=== PATIENT | female | born 1935 | race Caucasian/White ===

== ENCOUNTER 2016-04-04 08:44 | Emergency (ER) | payer OTHER, MEDICARE ==
--- NOTE | 2016-04-04 10:20 | DIAGNOSTIC IMAGING REPORT ---
PROCEDURE: XR CHEST 1 VIEW INDICATION: SHORTNESS OF BREATH TECHNIQUE: Portable AP view 09:42 a.m. COMPARISON: Chest 12/27/2015 and 07/08/2009 FINDINGS: Lungs are clear. There is moderate cardiomegaly. There is a left subclavian pacemaker. Thorax is normal. IMPRESSION: 1. No acute infiltrates. Cardiomegaly
--- NOTE | 2016-04-04 12:48 | ED NURSING NOTES ---
Clinical Report - Nurses [facility] [address] [place] [address] 04/04/2016 8:44 Patient: PRABHJOT AYALA TRIAGE Acuity: LEVEL 3. Chief Complaint: WEAKNESS. Alert. No acute distress. SEPSIS SCREEN: Sepsis Screen. Negative (no infection suspected/documented). KARI COMA SCORE: [place] Coma Scale: 15- eyes open spontaneously (4); best verbal response- oriented x 4 (5); best motor response- obeys commands (6). --08:53 Sherrill Diaz R.N. 08:46 04/04/16. BP: 154/67. HR: 88. RR: 20. O2 saturation: 94%. Temp: 99.4 F. Pain level now: 0/10. --08:53 Sherrill Diaz R.N. Weight: 80.7 kg stated. Height/Length: 60 inches Per Patient. BMI: 34.7. --08:51 Sherrill Diaz R.N. Medications Diltiazem HCl Oral 180 mg, daily. Estraderm Transdermal 0.05, patch weekly. HydrALAZINE HCl Oral (Tablet 10 mg) 1 tablet, TID. Omeprazole Oral 40 mg, 2x a day. Synthroid Oral 50 mcg, daily. Warfarin Sodium Oral 3 mg, MWF (2.5 T TH SS). Wellbutrin Oral 150 mg, daily. Xanax Oral 0.5 mg, at bedtime. --08:50 Sherrill Diaz R.N. Valtrex Oral (Tablet 1 gm). --08:52 Sherrill Diaz R.N. Medication/allergy information source: the patient. --08:53 Sherrill Diaz R.N. Allergies Ambien. (passed out) Amiodarone. (toxicity of lungs) Bactrim. Ceftin. Cozaar. Levofloxacin. Lexapro. (sores in mouth) LIsinopril. Nitrous oxide-- couldn't breath. --08:49 Sherrill Diaz R.N. History Arrived by EMS. Historian: patient. Unaccompanied. Primary physician (Usha). Onset. (5 days ago). Treatment VIDEO PRODUCTION SPECIALIST: None. PAST MEDICAL HX: The patient has had a hysterectomy. SOCIAL HX: Never smoker. No alcohol use or drug use. NUTRITIONAL RISK ASSESSMENT: The nutritional risk assessment revealed no deficiencies. FUNCTIONAL ASSESSMENT: Functional assessment: no impairments noted. LEARNING NEEDS ASSESSMENT: The learning needs assessment revealed no barriers. FALL RISK ASSESSMENT: Fall risk assessment completed. Risk factors identified include patient age greater than 65 years, history of fall and impairment of mobility. Fall interventions initiated. Patient placed on stretcher. Side rails up x2. Brakes on Bed in low position. Call light in reach. SKIN INTEGRITY ASSESSMENT: Skin integrity risk assessment completed. No skin integrity risk identified. --08:53 Sherrill Diaz R.N. PROBLEMS: Hypertension. Dyspnea. Weakness. Pneumonia. Pulmonary fibrosis. Congestive Heart Failure. --08:51 Sherrill Diaz R.N. ADDITIONAL SURGERIES: Ablation. Cholecystectomy. Hysterectomy. Pacer. --08:51 Sherrill Diaz R.N. Assessment GENERAL / NEURO / PSYCH: Alert. Oriented X 4. Appears in no acute distress. Patient appears calm and cooperative. RESPIRATORY: Respirations not labored. CVS: Capillary refill less than 2 seconds. GI / : Abdomen soft and nontender. SKIN: Mucous membranes are pink. Skin is warm and dry. --08:53 Sherrill Diaz R.N. Interventions ID band on patient. To treatment room. --08:53 Sherrill Diaz R.N. PHYSICAL ASSESSMENT To room via stretcher. GENERAL / NEURO / PSYCH: Alert. Oriented X 4. Appears in no acute distress. HEENT: No facial asymmetry noted. Mucous membranes are pink. RESPIRATORY: Respirations not labored. CVS: Capillary refill less than 2 seconds. GI / : Abdomen soft and nontender. SKIN: Skin intact. Skin is warm and dry. Normal skin turgor. --08:54 Sherrill Diaz R.N. NURSING PROGRESS NOTES 08:54 04/04/16. Patient gowned. Two patient identifiers checked. Call light placed in reach. Side rails up x 2. Bed placed in lowest position. Brakes of bed on. Patient ready for evaluation- chart flagged and ED physician notified. --08:54 Sherrill Diaz R.N. 09:36 04/04/2016 Site #1 started via IV in the left antecubital space with an 20g angiocath, with aseptic technique and good blood return; one attempt. Blood drawn: rainbow set. Labeled in the presence of the patient and sent to the lab. --09:36 Sherrill Diaz R.N. 09:36 04/04/2016 Started bag #1 1000 mL IV Fluids IV NS (Saline); at 999 mL/hr over 1 hour(s) via site #1 via IV pump. Allergies verified and confirmed 5 rights. IV patency established. IV site checked: no pain, redness, or swelling. IV flushed thoroughly pre- and post-medication administration. --09:36 Sherrill Diaz R.N. 09:45 04/04/16. EKG was performed by a nurse and shown to the ED physician. --09:45 Sherrill Diaz R.N. 10:38 04/04/2016 IV Fluids IV NS Discontinued: bag #1 infused. Total amount infused: 1000 mL. IV patency established. IV site checked: no pain, redness, or swelling. IV flushed thoroughly. --10:38 Sherrill Diaz R.N. 11:05 04/04/16. Assisted patient to bathroom, to wheelchair and back to bed; tolerated well. Patient ID band checked for patient name and birthdate: patient confirmed. Instructions provided to collect clean catch urine and patient verbalized understanding. Clean catch urine collected with return of roberto-colored cloudy urine; sample sent to lab for urinalysis and culture. Specimen labeled in the presence of the patient. --11:05 Yuval Wynne R.N. 11:51 04/04/2016 Macrobid PO 100 mg given. Allergies verified and confirmed 5 rights. --11:52 Sherrill Diaz R.N. 11:52 04/04/16. BP: 140/63. HR: 73. RR: 18. O2 saturation: 96%. Temp: 99 F (oral). --11:53 Sherrill Diaz R.N. 10:25 04/04/2016 Site #1 removed upon discharge. Catheter intact. Manual pressure and bandage applied. --13:01 Sherrill Diaz R.N. DISPOSITION / DISCHARGE 13:02 04/04/16. Departure time: 1256. Condition at departure: improved and stable. No learning barriers present. Discharge instructions provided and reviewed with the caregiver, patient and family. Reviewed medication(s) side effects, precautions, dosing and course information. Prescription(s) given to the patient. Patient and family verbalized understanding. Written instructions provided in [place]. Caregiver verbalized understanding. The patient was discharged by the physician. She was discharged home and accompanied by family. She left the Emergency Department in a wheelchair and via private vehicle. Family member driving. --13:02 Yuval Wynne R.N. 13:00 04/04/16. BP: 144/64. HR: 72. RR: 16. O2 saturation: 99% on room air. Temp: 98.2 F (oral). Pain level now 0/10. --13:02 Yuval Wynne R.N. Locked/Released at 04/04/2016 13:03 by Yuval Wynne R.N.
--- NOTE | 2016-04-04 12:48 | ED ORDER SUMMARY ---
..... Patient: PRABHJOT AYALA OrderSheet [facility] VisitID: [id number] [place] [address] 80y, F Registration Date/Time: 04/04/2016 ORDER SHEET Weight: 80.7 kg (stated) Allergies: Ambien, Amiodarone, Bactrim, Ceftin, Cozaar, Levofloxacin, Lexapro, LIsinopril, Nitrous oxide-- couldn't breath GENERAL ORDERS: Chest 1V Urgent (09:04/04/2016 Frank BERNAL) (Ack 9:23 LMuller) (9:44 MWinterer R.N.) Supervisor Liquefaction (Continuous) (:04/04/2016 Frank BERNAL) (Ack 9:23 LMuller) (9:36 MWinterer R.N.) Cardiac Panel Stat (:04/04/2016 Frank BERNAL) (Ack 9:23 LMuller) (9:37 MWinterer R.N.) UA-Culture if indicated Urgent (:04/04/2016 Frank BERNAL) (Ack 9:23 LMuller) (11:45 MWinterer R.N.) BNP Urgent (:04/04/2016 Frank BERNAL) (Ack 9:23 LMuller) (9:37 MWinterer R.N.) Pulse oximeter (:04/04/2016 Frank BERNAL) (Ack 9:23 LMuller) (9:36 MWinterer R.N.) EKG - ER Stat (:04/04/2016 Frank BERNAL) (Ack 9:23 LMuller) (9:44 MWinterer R.N.) MEDICATION ORDERS: Macrobid PO 100 mg (NOW) (11:04/04/2016 Frank BERNAL) (Ack 11:43 MWinterer R.N.) (11:51 MWinterer R.N.) IV FLUIDS: IV NS : initial bolus 1000 mL (1000 mL/hr), then none - (NOW) (09:04/04/2016 Frank BERNAL) (Ack 9:23 MWinterer R.N.) (9:36 MWinterer R.N.) ORDER SHEET NOTES: [Electronically signed by Yuval Wynne R.N. (13:03 04/04/2016)] [Electronically signed by Rahel Parisi MD (07:38 04/10/2016)] [Electronically locked/signed by Yuval Wynne R.N. (13:03 04/04/2016)]
--- NOTE | 2016-04-04 12:48 | ED ORDER SUMMARY ---
..... Patient: PRABHJOT AYALA OrderSheet [facility] VisitID: [id number] [place] [address] 80y, F Registration Date/Time: 04/04/2016 ORDER SHEET Weight: 80.7 kg (stated) Allergies: Ambien, Amiodarone, Bactrim, Ceftin, Cozaar, Levofloxacin, Lexapro, LIsinopril, Nitrous oxide-- couldn't breath GENERAL ORDERS: Chest 1V Urgent (09:04/04/2016 Frank BERNAL) (Ack 9:23 LMuller) (9:44 MWinterer R.N.) Government Affairs Specialist (Continuous) (:04/04/2016 Frank BERNAL) (Ack 9:23 LMuller) (9:36 MWinterer R.N.) Cardiac Panel Stat (:04/04/2016 Frank BERNAL) (Ack 9:23 LMuller) (9:37 MWinterer R.N.) UA-Culture if indicated Urgent (:04/04/2016 Frank BERNAL) (Ack 9:23 LMuller) (11:45 MWinterer R.N.) BNP Urgent (:04/04/2016 Frank BERNAL) (Ack 9:23 LMuller) (9:37 MWinterer R.N.) Pulse oximeter (:04/04/2016 Frank BERNAL) (Ack 9:23 LMuller) (9:36 MWinterer R.N.) EKG - ER Stat (:04/04/2016 Frank BERNAL) (Ack 9:23 LMuller) (9:44 MWinterer R.N.) MEDICATION ORDERS: Macrobid PO 100 mg (NOW) (11:04/04/2016 Frank BERNAL) (Ack 11:43 MWinterer R.N.) (11:51 MWinterer R.N.) IV FLUIDS: IV NS : initial bolus 1000 mL (1000 mL/hr), then none - (NOW) (09:04/04/2016 Frank BERNAL) (Ack 9:23 MWinterer R.N.) (9:36 MWinterer R.N.) ORDER SHEET NOTES: [Electronically signed by Yuval Wynne R.N. (13:03 04/04/2016)] [Electronically signed by Rahel Parisi MD (07:38 04/10/2016)] [Electronically locked/signed by Yuval Wynne R.N. (13:03 04/04/2016)]
--- NOTE | 2016-04-04 12:48 | ED CLINICAL REPORT ---
Clinical Report - Physicians/Mid Levels [facility] [address] [place] [address] 04/04/2016 8:44 Patient: PRABHJOT AYALA Time Seen: 09:18. Arrived- By private vehicle. Historian- patient. HISTORY OF PRESENT ILLNESS Chief Complaint: WEAKNESS. Not described as a sense of rotation, movement, falling or confusion. Not described as feeling off balance, light-headed or faint. Described as feeling weak all over. This started about 3 days ago and is still present. Severity described as mild at its maximum. When seen in the E.D., severity described as mild. Modifying factors- relieved by nothing. Not worsened by anything. No nausea, vomiting, hearing loss or tinnitus. (PT states she's been in bed more than usual lately. She also notes that she has not been drinking much water.). Similar symptoms previously: Recent medical care: Not recently seen/assessed. REVIEW OF SYSTEMS No headache, double vision, fainting episodes, head injury or chest pain. No palpitations, black stools, numbness, bloody stools or fever. No sore throat, cough, difficulty breathing, abdominal pain or diarrhea. No difficulty with urination, skin rash, enlarged lymph nodes, chills or joint pain. The patient has had generalized weakness. No difficulty walking. All systems otherwise negative, except as recorded above. PAST HISTORY Problems: Hypertension. Pulmonary fibrosis. Congestive Heart Failure. Additional Surgeries: Ablation. Cholecystectomy. Hysterectomy. Pacer. Medications: Valtrex Oral (Tablet 1 gm). Diltiazem HCl Oral 180 mg, daily. Estraderm Transdermal 0.05, patch weekly. HydrALAZINE HCl Oral (Tablet 10 mg) 1 tablet, TID. Omeprazole Oral 40 mg, 2x a day. Synthroid Oral 50 mcg, daily. Warfarin Sodium Oral 3 mg, MWF (2.5 T SS). Wellbutrin Oral 150 mg, daily. Xanax Oral 0.5 mg, at bedtime. Allergies: Ambien. (passed out) Amiodarone. (toxicity of lungs) Bactrim. Ceftin. Cozaar. Levofloxacin. Lexapro. (sores in mouth) LIsinopril. Nitrous oxide-- couldn't breath. SOCIAL HISTORY Never smoker. No alcohol use or drug use. ADDITIONAL NOTES The nursing notes have been reviewed. PHYSICAL EXAM Vital Signs: 04/04/2016 08:46 BP: 154/67. HR: 88. RR: 20. O2 saturation: 94%. Temp: 99.4 F. Pain level now: 0/10. Have been reviewed. Appearance: Alert. No acute distress. Eyes: Pupils equal, round and reactive to light. No nystagmus. Extraocular movements normal. ENT: Normal ENT inspection. Moist mucous membranes. Neck: Normal inspection. CVS: Normal heart rate and rhythm. Heart sounds normal. Pulses normal. Respiratory: No respiratory distress. Breath sounds normal. Abdomen: Soft and nontender. Back: Normal inspection. No CVA tenderness. Skin: Skin warm and dry. Normal skin color. No rash. Normal skin turgor. Extremities: Extremities exhibit normal ROM. No lower extremity edema. Neuro: Alert. Oriented X 3. Mood/affect normal. Speech normal. Cranial nerves normal (as tested). No cerebellar findings. No motor deficit. No sensory deficit. LABS, X-RAYS, AND EKG EKG: EKG time: (45). No acute ischemia. Rate: 70. Paced rhythm. Abnormal P waves. Wide QRS. Normal QT and QTc. Non-specific ST segment / T wave abnormalities. Prior EKG unavailable. The study has been interpreted contemporaneously by me. The study has been independently viewed by me. The EKG appears to be a good tracing. I agree with and confirm the computer reading of the EKG. Rhythm Strip #1: Time: (32). Rate= 70. Regular rhythm. Paced rhythm. No ectopy. Conduction normal. Normal ST segments and T waves. The study was interpreted by me. Chest X-ray: No acute disease. Normal lung markings present. Normal heart size. Mediastinum normal. Great vessels normal. Soft tissues normal. No infiltrate. No fracture. No bony lesion present. Views: AP (portable). Technique: good. The X-rays were independently viewed by me, interpreted by the radiologist and contemporaneously by me and discussed with the radiologist. Prior films were not available for comparison. Laboratory Tests: UA-Culture if indicated: (HUMERA: 04/04/2016 10:59) ( [facility] Final results Test Result Flag Units (Reference) URINE COLOR YELLOW URINE APPEARANCE CLOUDY URINE GLUCOSE NEGATIVE (NEGATIVE) URINE BILIRUBIN NEGATIVE (NEGATIVE) URINE KETONE NEGATIVE (NEGATIVE) URINE SPECIFIC GRAVITY 1.010 (1.010-1.030) URINE PH 6.0 (5.0-8.0) URINE PROTEIN 1+ (NEGATIVE) URINE UROBILINOGEN 0.2 EU/dL (0.2-1.0) URINE NITRITE POSITIVE (NEGATIVE) URINE BLOOD 2+ (NEGATIVE) URINE LEUK ESTERASE POSITIVE (NEGATIVE) URINE RBC 1-3 rbc/hpf (0-1) URINE WBC >100 wbc/hpf (0-1) URINE EPITHELIAL CELLS 3-5 EPI/hpf (0-5) URINE BACTERIA MANY (4+) (NONE SEEN) URINE COMMENT CULTURE INDICATED 1+ MUCOUSURINE CULTURES ARE SET-UP BASED ON THE FOLLOWING CRITERIA:POSITIVE NITRITEPOSITIVE LEUKOCYTE ESTERASEGREATER THAN 10 WHITE BLOOD CELLSMODERATE (2+) OR GREATER BACTERIA CBC w Diff: (HUMERA: 04/04/2016 09:30) ( [facility] [place] [facility] 09[facility]43) Final results Test Result Flag Units (Reference) WHITE BLOOD COUNT 12.1 H K/uL (4.5-11.5) RED BLOOD COUNT 3.85 L M/uL (4.00-5.20) HEMOGLOBIN 12.1 gm/dL (12.0-16.0) HEMATOCRIT 36.2 % (36.0-46.0) MEAN CELL VOLUME 94 fL (80-100) MEAN CORPUSCULAR HGB 32 pg (26-34) MEAN CORPUSCULAR HGB CONC 34 g/dL (31-37) RED CELL DISTRIBUTION WIDTH 15.3 H % (11.6-14.8) PLATELET COUNT 231 K/uL (150-400) NEUTROPHIL % 84.3 H % (50-75) LYMPH % 8.4 L % (25-40) MONO % 7.1 % (3-14) EOSINOPHIL % 0.1 % (0-4) BASOPHIL % 0.1 % (0-2) BNP: (HUMERA: 04/04/2016 09:30) ( MsgRcvd 04/04/2016 10:10) Final results Test Result Flag Units (Reference) B-TYPE NATRIURETIC PEPTIDE 524 H pg/ml (5-100) CHEM 13 PANEL: (HUMERA: 04/04/2016 09:30) ( MsgRcvd 04/04/2016 10:14) Final results Test Result Flag Units (Reference) GLUCOSE 112 H mg/dL (70-110) BUN 18 mg/dL (7-18) CREATININE 1.6 H mg/dL (0.6-1.3) Estimated GFR 32.88 mL/min Estimated GFR- 39.85 mL/min Note: Persistent reduction over 3 months in eGFR<60 mL/min/1.73 m2 defines CKD. Patients with eGFR values>=60 mL/min/1.73 m2 may also have CKD if evidence ofpersistent proteinuria. Additional information may be foundat www.kidney.org. SODIUM 139 mmol/L (136-145) POTASSIUM 3.5 mmol/L (3.5-5.1) CHLORIDE 103 mmol/L (98-107) CARBON DIOXIDE 23 mmol/L (21-32) CALCIUM 8.5 mg/dL (8.5-10.1) TOTAL PROTEIN 7.0 g/dL (6.4-8.2) ALBUMIN 2.7 L g/dL (3.3-5.0) BILIRUBIN, TOTAL 1.5 H mg/dL (0.0-1.0) ALKALINE PHOSPHATASE 97 U/L (46-116) AST (SGOT) 34 U/L (15-37) ALT (SGPT) 35 U/L (12-78) MAGNESIUM 1.8 mg/dL (1.8-2.4) CPK 90 U/L (24-260) TROPONIN I <0.05 ng/mL (0.00-1.5) TROPONIN REFERENCE RANGE:<0.1 NEGATIVE0.1-1.5 INDETERMINANT>1.5 POSITIVE . Pulse Oximetry: 04/04/2016 08:46 O2 saturation: 94%. (FIO2 - room air). Interpretation: normal. PROGRESS AND PROCEDURES Course of Care: PT was worked up for her weakness. She was given a liter of NS, after which she stated she felt better. Pt was found to have a UTI, and was started on Macrobid for this. No emergent condition identified. Patient and family counseled in person regarding the patient's stable condition, test results, diagnosis and need for follow-up. Concerns were addressed. Old medical records reviewed. Disposition: Discharged. Condition: stable and improved. CLINICAL IMPRESSION Moderate dehydration Acute urinary tract infection with cystitis. INSTRUCTIONS Drink plenty of fluids. Warnings: GENERAL WARNINGS: Return or contact your physician immediately if your condition worsens or changes unexpectedly, if not improving as expected, or if other problems arise. Your Current Medications: CONTINUE TAKING THE FOLLOWING MEDICATIONS: Diltiazem HCl Oral : 180 mg daily. Estraderm Transdermal : 0.05 patch weekly. HydrALAZINE HCl Oral : Tablet 10 mg, 1 tablet TID. Omeprazole Oral : 40 mg 2x a day. Synthroid Oral : 50 mcg daily. Valtrex Oral : Tablet 1 gm. Warfarin Sodium Oral : 3 mg MWF, 2.5 T TH SS. Wellbutrin Oral : 150 mg daily. Xanax Oral : 0.5 mg at bedtime. Prescription Medications: Macrobid 100 mg: take 1 capsule orally every 12 hours for 10 days. No refill. Substitution is permissible. Follow-up: Follow up with your doctor in seven days if not better. Understanding of the discharge instructions verbalized by patient and family. Discharge instructions reviewed with and understanding was verbalized by caregiver. (Electronically signed by Rahel Parisi MD 04/10/2016 7:38)
--- NOTE | 2016-04-10 07:39 | ED MAR SUMMARY ---
..... Medication Administration Record [facility] [address] [place] [address] Patient: PRABHJOT AYALA Visit ID: [id number] 80y, F Weight: 80.7 kg Height/Length: 60 in BMI: 34.7 ALLERGIES: Ambien, Amiodarone, Bactrim, Ceftin, Cozaar, Levofloxacin, Lexapro, LIsinopril, Nitrous oxide-- couldn't breath Start 09:36 04/04/2016 Sherrill Diaz R.N., Stop 10:38 04/04/2016 Sherrill Diaz R.N. Medication Administered: IV NS (SALINE), Dose: IV Fluids over 1 hour(s), Rate: 999 mL/hr, Dispensed: 1000 mL bag, Site: #1 left AC. Medication Ordered: IV NS : initial bolus 1000 mL (1000 mL/hr), then none - (NOW). Given 11:51 04/04/2016 Sherrill Diaz R.N. Medication Administered: MACROBID [PO], Dose: 100 mg PO. Medication Ordered: Macrobid PO 100 mg (NOW).
--- NOTE | 2016-04-10 07:39 | ED MAR SUMMARY ---
..... Medication Administration Record [facility] [address] [place] [address] Patient: PRABHJOT AYALA Visit ID: [id number] 80y, F Weight: 80.7 kg Height/Length: 60 in BMI: 34.7 ALLERGIES: Ambien, Amiodarone, Bactrim, Ceftin, Cozaar, Levofloxacin, Lexapro, LIsinopril, Nitrous oxide-- couldn't breath Start 09:36 04/04/2016 Sherrill Diaz R.N., Stop 10:38 04/04/2016 Sherrill Diaz R.N. Medication Administered: IV NS (SALINE), Dose: IV Fluids over 1 hour(s), Rate: 999 mL/hr, Dispensed: 1000 mL bag, Site: #1 left AC. Medication Ordered: IV NS : initial bolus 1000 mL (1000 mL/hr), then none - (NOW). Given 11:51 04/04/2016 Sherrill Diaz R.N. Medication Administered: MACROBID [PO], Dose: 100 mg PO. Medication Ordered: Macrobid PO 100 mg (NOW).
--- NOTE | 2016-04-10 07:39 | ED MED RECONCILIATION SUMMARY ---
Patient: PRABHJOT AYALA Medication Reconciliation Report [facility] VisitID: [id number] [address] [place] [address] 80y, F Registration Date/Time: 04/04/2016 Weight: 80.7 kg Height/Length: 60 in. BMI: 34.7 ALLERGIES: Ambien, Amiodarone, Bactrim, Ceftin, Cozaar, Levofloxacin, Lexapro, LIsinopril, Nitrous oxide-- couldn't breath The patient's Home Medications are listed below: CONTINUE TAKING THE FOLLOWING MEDICATIONS: Diltiazem HCl Oral 180 mg, daily Estraderm Transdermal 0.05, patch weekly HydrALAZINE HCl Oral (10 mg) 1 tablet, TID Omeprazole Oral 40 mg, 2x a day Synthroid Oral 50 mcg, daily Valtrex Oral (1 gm) Warfarin Sodium Oral 3 mg, MWF, 2.5 T TH SS Wellbutrin Oral 150 mg, daily Xanax Oral 0.5 mg, at bedtime The source(s) of the original Home Medication information: patient The following Medications were given to the patient in the Emergency Department: IV NS IV Fluids bolus 0, then 999 mL/hr, administered: 04/04/2016 9:36:00 AM Macrobid [PO] PO 100 mg, administered: 04/04/2016 11:51:00 AM The following Medications were prescribed to the patient: Macrobid 100 mg: take 1 capsule orally every 12 hours for 10 days. No refill. Substitution is permissible. -- Rahel Parisi MD
--- NOTE | 2016-04-10 07:39 | ED MED RECONCILIATION SUMMARY ---
Patient: PRABHJOT AYALA Medication Reconciliation Report [facility] VisitID: [id number] [address] [place] [address] 80y, F Registration Date/Time: 04/04/2016 Weight: 80.7 kg Height/Length: 60 in. BMI: 34.7 ALLERGIES: Ambien, Amiodarone, Bactrim, Ceftin, Cozaar, Levofloxacin, Lexapro, LIsinopril, Nitrous oxide-- couldn't breath The patient's Home Medications are listed below: CONTINUE TAKING THE FOLLOWING MEDICATIONS: Diltiazem HCl Oral 180 mg, daily Estraderm Transdermal 0.05, patch weekly HydrALAZINE HCl Oral (10 mg) 1 tablet, TID Omeprazole Oral 40 mg, 2x a day Synthroid Oral 50 mcg, daily Valtrex Oral (1 gm) Warfarin Sodium Oral 3 mg, MWF, 2.5 T TH SS Wellbutrin Oral 150 mg, daily Xanax Oral 0.5 mg, at bedtime The source(s) of the original Home Medication information: patient The following Medications were given to the patient in the Emergency Department: IV NS IV Fluids bolus 0, then 999 mL/hr, administered: 04/04/2016 9:36:00 AM Macrobid [PO] PO 100 mg, administered: 04/04/2016 11:51:00 AM The following Medications were prescribed to the patient: Macrobid 100 mg: take 1 capsule orally every 12 hours for 10 days. No refill. Substitution is permissible. -- Rahel Parisi MD
--- NOTE | 2016-04-10 07:39 | ED DISCHARGE INSTRUCTIONS ---
Patient: PRABHJOT AYALA General Instructions [facility] VisitID: [id number] [place] [address] 80y, F Registration Date/Time: 04/04/2016 Moderate dehydration Acute urinary tract infection with cystitis. INSTRUCTIONS Drink plenty of fluids. Warnings: GENERAL WARNINGS: Return or contact your physician immediately if your condition worsens or changes unexpectedly, if not improving as expected, or if other problems arise. Your Current Medications: CONTINUE TAKING THE FOLLOWING MEDICATIONS: Diltiazem HCl Oral : 180 mg daily. Estraderm Transdermal : 0.05 patch weekly. HydrALAZINE HCl Oral : Tablet 10 mg, 1 tablet TID. Omeprazole Oral : 40 mg 2x a day. Synthroid Oral : 50 mcg daily. Valtrex Oral : Tablet 1 gm. Warfarin Sodium Oral : 3 mg MWF, 2.5 T TH SS. Wellbutrin Oral : 150 mg daily. Xanax Oral : 0.5 mg at bedtime. Prescription Medications: Macrobid 100 mg: take 1 capsule orally every 12 hours for 10 days. No refill. Substitution is permissible. Follow-up: Follow up with your doctor in seven days if not better. Understanding of the discharge instructions verbalized by patient and family. Discharge instructions reviewed with and understanding was verbalized by caregiver. ADDITIONAL INFORMATION Dehydration (Adult) Dehydration occurs when your body loses too much fluid. This may be the result of vomiting a lot or from diarrhea,sweating a lot, or a high fever. It may also happen if you dont drink enough fluid when youre sick. Misuse of diuretics (water pills) can also be a cause. Symptoms include thirst and feeling dizzy, weak, fatigued, or very drowsy. The diet described below is usually enough to treat most cases. Sometimes you may needmedicine. Home Care Follow these guidelines for home care: Drink at least 12 8-ounce glasses of fluid every day to overcome the dehydration. Fluid may include water; orange juice; lemonade; apple, grape, and cranberry juice; clear fruit drinks; electrolyte replacement and sports drinks; and teas and coffee without caffeine. If you have been diagnosed with a kidney disease, ask your doctor how much and what types of fluids you should drink to prevent dehydration. If you have kidney disease, drinking too much fluid can cause it build up in the your body and be dangerous to your health. If you have fever, muscle aching, or headache from a viral syndrome, you may useacetaminophen or ibuprofen, unless another medicine was prescribed for this.If you have chronic liver or kidney disease or ever had a stomach ulcer or GI bleeding, talk with your doctor before using these medicines. Don't take aspirin if you are younger than 18 and are ill with a fever.Aspirin raises the chance forsevere liver injury. Follow-up care Follow up with your health care provider if you don't get better in the next 24 to 48 hours. When to seek medical care Get prompt medical attention if any of theseoccur: Continued vomiting (cant keep liquids down) Frequent diarrhea (more than 5 times a day); blood (red or black color) or mucus in diarrhea Blood in vomit or stool Swollen abdomen or increasing abdominal pain Weakness, dizziness, or fainting Unusually drowsy or confused Reduced urine output or extreme thirst Fever of 100.4 F (38 C) oral or higher that does not get better with fever medication Bladder Infection,Female (Adult) A bladder infection ("cystitis" or "UTI") usually causes a constant urge to urinate and a burning when passing urine. Urine may be cloudy, smelly or dark. There may be pain in the lower abdomen. A bladder infection occurs when bacteria from the vaginal area enter the bladder opening (urethra). This can occur from sexual intercourse, wearing tight clothing, dehydration and other factors. Home Care: Drink lots of fluids (at least 6-8 glasses a day, unless you must restrict fluids for other medical reasons). This will force the medicine into your urinary system and flush the bacteria out of your body. Avoid sexual intercourse until your symptoms are gone. Avoid caffeine, alcohol and spicy foods. These can irritate the bladder. A bladder infection is treated with antibiotics. You may also be given Pyridium (generic = phenazopyridine) to reduce the burning sensation. This medicine will cause your urine to become a bright orange color. The orange urine may stain clothing. You may wear a pad or panty-liner to protect clothing. Preventing Future Infections: Always wipe from front to back after a bowel movement. Keep the genital area clean and dry. Drink plenty of fluids each day to avoid dehydration. Both sexual partners should wash before intercourse. Urinate right after intercourse to flush out the bladder. Wear cotton underwear and cotton-lined panty hose; avoid tight-fitting pants. If you are on control pills and are having frequent bladder infections, discuss with your doctor. Follow Up: Return to this facility or see your doctor if ALL symptoms are not gone after three days of treatment. Get Prompt Medical Attention if any of the following occur: Fever of 100.4F (38C) or higher, or as directed by your healthcare provider No improvement by the third day of treatment Increasing back or abdominal pain Repeated vomiting; unable to keep medicine down Weakness, dizziness or fainting Vaginal discharge Pain, redness or swelling in the labia (outer vaginal area) You have been given the following additional information: Dehydration (Adult) Bladder Infection, Female (Adult) (Electronically signed by Rahel Parisi MD 04/10/2016 7:38)
== END 2016-04-04 12:56 | disposition home or self-care (01) ==
LOC: ED SRH 08:44
DX: E86.0 Dehydration (principal); N30.00 Acute cystitis without hematuria; I10 Essential (primary) hypertension; I50.9 Heart failure, unspecified; Z79.01 Long term (current) use of anticoagulants; Z79.899 Other long term (current) drug therapy; Z88.1 Allergy status to other antibiotic agents; Z88.8 Allergy status to other drugs, medicaments and biological substances
CPT/HCPCS: 90004; 90100; 90148; 90469; 90616; 91320; 92610; 92720; 95059

== ENCOUNTER 2016-04-08 11:25 | Emergency (ER) | payer OTHER, MEDICARE ==
--- NOTE | 2016-04-08 13:53 | ED ORDER SUMMARY ---
..... Patient: PRABHJOT AYALA OrderSheet [facility] VisitID: [id number] [address] [place] [address] 80y, F Registration Date/Time: 04/08/2016 ORDER SHEET Weight: 80.2 kg (stated) Allergies: Ambien, Amiodarone, Bactrim, Ceftin, Cozaar, Levofloxacin, Lexapro, LIsinopril, Nitrous oxide-- couldn't breath GENERAL ORDERS: UA-Culture if indicated Urgent (12:48 04/08/2016 HBivens A.R.N.P.) (k 12:51 TBejadon) (12:52 EHassan R.N.) MEDICATION ORDERS: Gentamicin IM 80mg (NOW) (13:45 04/08/2016 HBivens A.R.N.P.) (14:42 EHassan R.N.) IV FLUIDS: ORDER SHEET NOTES: [Electronically signed by Ana Rubio R.N. (14:50 04/08/2016)] [Electronically signed by Lenka IrahetaR.N.PVernon (19:15 04/08/2016)] [Electronically locked/signed by Ana Rubio R.N. (14:50 04/08/2016)]
--- NOTE | 2016-04-08 13:53 | ED NURSING NOTES ---
Clinical Report - Nurses [facility] [address] [place] [address] 04/08/2016 11:28 Patient: PRABHJOT AYALA TRIAGE Triage time 1210 PM. Acuity: LEVEL 4. Chief Complaint: PELVIC PAIN and PAINFUL URINATION. Alert. No acute distress. KARI COMA SCORE: [place] Coma Scale: 15- eyes open spontaneously (4); best verbal response- oriented x 4 (5); best motor response- obeys commands (6). --12:19 Ana Rubio R.N. 12:12 04/08/16. BP: 92/59 (regular adult cuff) taken on the left arm, via an automated monitor, while lying. HR: 79. RR: 12. O2 saturation: 96% on room air. Temp: 98.2 F (oral). Pain level now: 0/10. --12:19 Ana Rubio R.N. Weight: 80.2 kg stated. Height/Length: 60 inches Per Patient. BMI: 34.5. --12:17 Ana Rubio R.N. Medications Diltiazem HCl Oral 180 mg, daily. Estraderm Transdermal 0.05, patch weekly. --12:14 Ana Rubio R.N. HydrALAZINE HCl Oral (Tablet 10 mg) 1 tablet, TID. Omeprazole Oral 40 mg, 2x a day. Synthroid Oral 50 mcg, daily. Valtrex Oral (Tablet 1 gm). Warfarin Sodium Oral 3 mg, MWF (2.5 T TH SS). Wellbutrin Oral 150 mg, daily. Xanax Oral 0.5 mg, at bedtime. --12:14 Ana Rubio R.N. Medication/allergy information source: the patient. --12:19 Ana Rubio R.N. Allergies Ambien. (passed out) Amiodarone. (toxicity of lungs) Bactrim. Ceftin. Cozaar. Levofloxacin. Lexapro. (sores in mouth) LIsinopril. Nitrous oxide-- couldn't breath. --12:14 Ana Rubio R.N. History Arrived by private vehicle. Historian: patient. Accompanied by family. Primary physician called the ED prior to patient's arrival. ED physician to evaluate the patient (Dr. Wilson). ( Pt was sent here by Dr. Wilson to get "IV antibiotics for UTI" Pt was here on 04/04 seeing for UTI, became allergic to medicine and was now prescribed Monural which won't become available until Sunday.). The patient has had fever and abdominal pain. 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 PAST MEDICAL HX: Immunizations: up-to-date. SOCIAL HX: Never smoker. No alcohol use or drug use. No infectious disease exposure. ABUSE ASSESSMENT: No report of abuse. FALL RISK ASSESSMENT: Fall risk assessment completed. No fall risk identified. NUTRITIONAL RISK ASSESSMENT: The nutritional risk assessment revealed no deficiencies. FUNCTIONAL ASSESSMENT: Functional assessment: no impairments noted. LEARNING NEEDS ASSESSMENT: The learning needs assessment revealed no barriers. SKIN INTEGRITY ASSESSMENT: Skin integrity risk assessment completed. No skin integrity risk identified. --12:19 Ana Rubio R.N. PROBLEMS: Dehydration. UTI - Urinary Tract Infection. Hypertension. Dyspnea. Weakness. Pneumonia. Pulmonary fibrosis. Congestive Heart Failure. --12:14 Ana Rubio R.N. ADDITIONAL SURGERIES: Ablation. Cholecystectomy. Hysterectomy. Pacer. --12:14 Ana Rubio R.N. Interventions ID band on patient. --12:19 Ana Rubio R.N. PHYSICAL ASSESSMENT Ambulatory to room. GENERAL / NEURO / PSYCH: Alert. Oriented X 4. Appears in no acute distress. HEENT: Mucous membranes are pink. RESPIRATORY: Respirations not labored. Breath sounds within normal limits. CVS: Capillary refill less than 2 seconds. SKIN: Skin is warm. --12:20 Ana Rubio R.N. NURSING PROGRESS NOTES The initial plan of care for this patient has been created This plan of care was discussed with the patient and family. Patient gowned. Reassurance given. Two patient identifiers checked. Call light placed in reach. Side rails up x 1. Bed placed in lowest position. Brakes of bed on. Brakes of chair on. --12:20 Ana Rubio R.N. 14:42 04/08/2016 Gentamicin IM 80 mg given. Given in the right deltoid. Allergies verified and confirmed 5 rights. --14:42 Ana Rubio R.N. Reassurance given. Reassessment after medication administered. She has had no adverse reaction. Two patient identifiers checked. Call light placed in reach. Side rails up x 1. Bed placed in lowest position. Brakes of bed on. Brakes of chair on. --14:45 Ana Rubio R.N. 14:44 04/08/16. BP: 144/70 (regular adult cuff) taken on the left arm, via an automated monitor, while sitting. HR: 71. RR: 12. O2 saturation: 97% on room air. Temp: 98.2 F (oral). Pain level now: 0/10. --14:45 Ana Rubio R.N. DISPOSITION / DISCHARGE Departure time: 1450 PM. Condition at departure: stable. The goals identified in the patient's plan of care were met. No learning barriers present. Discharge instructions provided and reviewed with the patient and family. Patient verbalized understanding. Written instructions provided in Prydeinig. ( Pt instructed to come back tomorrow for another Genta IM shot as per ENCODING MACHINE OPERATOR). No warning instructions, medication instructions, treatment instructions or referrals given to the patient. The patient was discharged by the nurse practitioner. She was discharged home and accompanied by family. She left the Emergency Department ambulatory and via private vehicle. Family member driving. FALL RISK ASSESSMENT: Fall risk assessment completed. No fall risk identified. --14:50 Ana Rubio R.N. 14:48 04/08/16. BP: 135/70 taken on the left arm, while sitting. HR: 71. RR: 12. O2 saturation: 100% on room air. Temp: 98.2 F (oral). Pain level now: 0/10. --14:50 Ana Rubio R.N. Locked/Released at 04/08/2016 14:50 by Ana Rubio R.N.
--- NOTE | 2016-04-08 13:53 | ED NURSING NOTES ---
Clinical Report - Nurses [facility] [address] [place] [address] 04/08/2016 11:28 Patient: PRABHJOT AYALA TRIAGE Triage time 1210 PM. Acuity: LEVEL 4. Chief Complaint: PELVIC PAIN and PAINFUL URINATION. Alert. No acute distress. KARI COMA SCORE: [place] Coma Scale: 15- eyes open spontaneously (4); best verbal response- oriented x 4 (5); best motor response- obeys commands (6). --12:19 Ana Rubio R.N. 12:12 04/08/16. BP: 92/59 (regular adult cuff) taken on the left arm, via an automated monitor, while lying. HR: 79. RR: 12. O2 saturation: 96% on room air. Temp: 98.2 F (oral). Pain level now: 0/10. --12:19 Ana Rubio R.N. Weight: 80.2 kg stated. Height/Length: 60 inches Per Patient. BMI: 34.5. --12:17 Ana Rubio R.N. Medications Diltiazem HCl Oral 180 mg, daily. Estraderm Transdermal 0.05, patch weekly. --12:14 Ana Rubio R.N. HydrALAZINE HCl Oral (Tablet 10 mg) 1 tablet, TID. Omeprazole Oral 40 mg, 2x a day. Synthroid Oral 50 mcg, daily. Valtrex Oral (Tablet 1 gm). Warfarin Sodium Oral 3 mg, MWF (2.5 T TH SS). Wellbutrin Oral 150 mg, daily. Xanax Oral 0.5 mg, at bedtime. --12:14 Ana Rubio R.N. Medication/allergy information source: the patient. --12:19 Ana Rubio R.N. Allergies Ambien. (passed out) Amiodarone. (toxicity of lungs) Bactrim. Ceftin. Cozaar. Levofloxacin. Lexapro. (sores in mouth) LIsinopril. Nitrous oxide-- couldn't breath. --12:14 Ana Rubio R.N. History Arrived by private vehicle. Historian: patient. Accompanied by family. Primary physician called the ED prior to patient's arrival. ED physician to evaluate the patient (Dr. Wilson). ( Pt was sent here by Dr. Wilson to get "IV antibiotics for UTI" Pt was here on 04/04 seeing for UTI, became allergic to medicine and was now prescribed Monural which won't become available until Sunday.). The patient has had fever and abdominal pain. Treatment DIRECTOR PARK: None. PAST MEDICAL HX: Immunizations: up-to-date. SOCIAL HX: Never smoker. No alcohol use or drug use. No infectious disease exposure. ABUSE ASSESSMENT: No report of abuse. FALL RISK ASSESSMENT: Fall risk assessment completed. No fall risk identified. NUTRITIONAL RISK ASSESSMENT: The nutritional risk assessment revealed no deficiencies. FUNCTIONAL ASSESSMENT: Functional assessment: no impairments noted. LEARNING NEEDS ASSESSMENT: The learning needs assessment revealed no barriers. SKIN INTEGRITY ASSESSMENT: Skin integrity risk assessment completed. No skin integrity risk identified. --12:19 Ana Rubio R.N. PROBLEMS: Dehydration. UTI - Urinary Tract Infection. Hypertension. Dyspnea. Weakness. Pneumonia. Pulmonary fibrosis. Congestive Heart Failure. --12:14 Ana Rubio R.N. ADDITIONAL SURGERIES: Ablation. Cholecystectomy. Hysterectomy. Pacer. --12:14 Ana Rubio R.N. Interventions ID band on patient. --12:19 Ana Rubio R.N. PHYSICAL ASSESSMENT Ambulatory to room. GENERAL / NEURO / PSYCH: Alert. Oriented X 4. Appears in no acute distress. HEENT: Mucous membranes are pink. RESPIRATORY: Respirations not labored. Breath sounds within normal limits. CVS: Capillary refill less than 2 seconds. SKIN: Skin is warm. --12:20 Ana Rubio R.N. NURSING PROGRESS NOTES The initial plan of care for this patient has been created This plan of care was discussed with the patient and family. Patient gowned. Reassurance given. Two patient identifiers checked. Call light placed in reach. Side rails up x 1. Bed placed in lowest position. Brakes of bed on. Brakes of chair on. --12:20 Ana Rubio R.N. 14:42 04/08/2016 Gentamicin IM 80 mg given. Given in the right deltoid. Allergies verified and confirmed 5 rights. --14:42 Ana Rubio R.N. Reassurance given. Reassessment after medication administered. She has had no adverse reaction. Two patient identifiers checked. Call light placed in reach. Side rails up x 1. Bed placed in lowest position. Brakes of bed on. Brakes of chair on. --14:45 Ana Rubio R.N. 14:44 04/08/16. BP: 144/70 (regular adult cuff) taken on the left arm, via an automated monitor, while sitting. HR: 71. RR: 12. O2 saturation: 97% on room air. Temp: 98.2 F (oral). Pain level now: 0/10. --14:45 Ana Rubio R.N. DISPOSITION / DISCHARGE Departure time: 1450 PM. Condition at departure: stable. The goals identified in the patient's plan of care were met. No learning barriers present. Discharge instructions provided and reviewed with the patient and family. Patient verbalized understanding. Written instructions provided in Romanian. ( Pt instructed to come back tomorrow for another Genta IM shot as per CHARTER DRIVER). No warning instructions, medication instructions, treatment instructions or referrals given to the patient. The patient was discharged by the nurse practitioner. She was discharged home and accompanied by family. She left the Emergency Department ambulatory and via private vehicle. Family member driving. FALL RISK ASSESSMENT: Fall risk assessment completed. No fall risk identified. --14:50 Ana Rubio R.N. 14:48 04/08/16. BP: 135/70 taken on the left arm, while sitting. HR: 71. RR: 12. O2 saturation: 100% on room air. Temp: 98.2 F (oral). Pain level now: 0/10. --14:50 Ana Rubio R.N. Locked/Released at 04/08/2016 14:50 by Ana Rubio R.N.
--- NOTE | 2016-04-08 13:53 | ED CLINICAL REPORT ---
Clinical Report - Physicians/[facility] [address] [place] [address] 04/08/2016 11:28 Patient: PRABHJOT AYALA Time Seen: 12:27; initial patient contact, initial documentation, patient care assumed. Arrived- By private vehicle. Historian- patient and family. RETURN VISIT: recently seen in this ED by another ED physician. Seen now for the same problem as before. HISTORY OF PRESENT ILLNESS Chief Complaint: DYSURIA. This started today and still present. The symptoms are described as mild. Modifying factors- worsened by urination. Not relieved by anything. No abdominal pain, pelvic pain, vaginal pain, low back pain or flank pain. No abnormal bleeding, vaginal discharge, urgency of urination or hematuria. She has had mild burning pain with urination. It is described as "painful", has occurred during urination and has been associated with frequency. No urgency of urination or vaginal discharge. The patient has had urinary frequency. Not sexually active. Similar symptoms previously: Occasionally, as bad. Recent medical care: The patient was seen recently at this facility in the emergency department. ( txed here 04/04 for weakness, dx with uti, given rx macrobid, took 3 1/2 doses of it, and then her urologist advised her to stop the med, pt was feeling better with it, and then today, after not having yesterday 2nd dose and none today, started having s/s again, her urologist is Dr. Wilson, whom called in new abx, Monurol, but pharmacy will not have the med til sunday, so pt was told to come to er for abx were available sunday). REVIEW OF SYSTEMS No nausea, vomiting, diarrhea, fever or difficulty breathing. No chest pain. All systems otherwise negative, except as recorded above. PAST HISTORY See nurses notes. ( PROBLEMS: Dehydration. UTI - Urinary Tract Infection. Hypertension. Dyspnea. Weakness. Pneumonia. Pulmonary fibrosis. Congestive Heart Failure. --12:14 Ana Rubio R.N. ADDITIONAL SURGERIES: Ablation. Cholecystectomy. Hysterectomy. Pacer. --12:14 Ana Rubio R.N.). SOCIAL HISTORY Never smoker. No alcohol use or drug use. No recent travel. Is a local resident. FAMILY HISTORY Negative. ADDITIONAL NOTES The nursing notes have been reviewed with agreement regarding the chief complaint, HPI, ROS, PMH and patient medications and allergies. PHYSICAL EXAM Vital Signs: 04/08/2016 12:12 BP: 92/59. HR: 79. RR: 12. O2 saturation: 96%. Temp: 98.2 F. Pain level now: 0/10. Have been reviewed as abnormal and appear to be correct. Hypotensive. Heart rate normal. Respiratory rate normal. Temperature normal. Oxygen saturation normal. Appearance: Alert. Oriented X3. No acute distress. HEENT: Normal external inspection. ENT: Pharynx normal. Neck: Neck supple. CVS: Heart sounds normal. Respiratory: No respiratory distress. Breath sounds normal. Chest nontender. Abdomen: Soft and nontender. Back: Normal external inspection. Skin: Skin warm and dry. Normal skin color. No rash. Normal skin turgor. Extremities: Extremities nontender. No lower extremity edema. Neuro: Oriented X 3. Mood/affect normal. No motor deficit. No sensory deficit. LABS, X-RAYS, AND EKG Laboratory Tests: UA-Culture if indicated: (HUMERA: 04/08/2016 12:54) ( MsgRcvd 04/08/2016 13:15) Final results Test Result Flag Units (Reference) URINE COLOR YELLOW URINE APPEARANCE CLOUDY URINE GLUCOSE NEGATIVE (NEGATIVE) URINE BILIRUBIN NEGATIVE (NEGATIVE) URINE KETONE NEGATIVE (NEGATIVE) URINE SPECIFIC GRAVITY <= 1.005 L (1.010-1.030) URINE PH 6.0 (5.0-8.0) URINE PROTEIN TRACE (NEGATIVE) URINE UROBILINOGEN 0.2 EU/dL (0.2-1.0) URINE NITRITE NEGATIVE (NEGATIVE) URINE BLOOD 3+ (NEGATIVE) URINE LEUK ESTERASE POSITIVE (NEGATIVE) URINE RBC 3-5 rbc/hpf (0-1) URINE WBC >100 wbc/hpf (0-1) URINE EPITHELIAL CELLS 10-15 EPI/hpf (0-5) URINE BACTERIA FEW (1+) (NONE SEEN) URINE COMMENT CULTURE INDICATED URINE CULTURES ARE SET-UP BASED ON THE FOLLOWING CRITERIA:POSITIVE NITRITEPOSITIVE LEUKOCYTE ESTERASEGREATER THAN 10 WHITE BLOOD CELLSMODERATE (2+) OR GREATER BACTERIA . PROGRESS AND PROCEDURES Course of Care: er records reviewed, with pt's allergies and cx report, pt may have either gentamycin or imipenen only 14:10 04/08/16. pt has brief lauri, nothing alarming. Patient and family counseled in person regarding the patient's stable condition, test results and diagnosis. 1348. Differential Diagnosis: Other possible considerations: uti, pyelo, urosepsis. Above considerations are based on history, physical exam and laboratory data. Differential diagnosis was discussed with patient and patient's family. Disposition: Discharged home in good and improved condition (13:53). Condition: good and stable. CLINICAL IMPRESSION Acute urinary tract infection with cystitis. No pyelonephritis or hematuria. Not associated with indwelling catheter or obstruction. INSTRUCTIONS Drink plenty of fluids. (to return tomorrow for more antibiotics). Warnings: GENERAL WARNINGS: Return or contact your physician immediately if your condition worsens or changes unexpectedly, if not improving as expected, or if other problems arise. Specifically return if problem worsens. Follow-up: Follow up with your doctor tomorrow even if well. Summary of care provided to patient. Understanding of the discharge instructions verbalized by patient. (Electronically signed by Lenka Iraheta A.R.N.P. 04/08/2016 19:15)
--- NOTE | 2016-04-08 13:53 | ED ORDER SUMMARY ---
..... Patient: PRABHJOT AYALA OrderSheet [facility] VisitID: [id number] [address] [place] [address] 80y, F Registration Date/Time: 04/08/2016 ORDER SHEET Weight: 80.2 kg (stated) Allergies: Ambien, Amiodarone, Bactrim, Ceftin, Cozaar, Levofloxacin, Lexapro, LIsinopril, Nitrous oxide-- couldn't breath GENERAL ORDERS: UA-Culture if indicated Urgent (12:48 04/08/2016 HBivens A.R.N.P.) (k 12:51 TBejadon) (12:52 EHassan R.N.) MEDICATION ORDERS: Gentamicin IM 80mg (NOW) (13:45 04/08/2016 HBivens A.R.N.P.) (14:42 EHassan R.N.) IV FLUIDS: ORDER SHEET NOTES: [Electronically signed by Ana Rubio R.N. (14:50 04/08/2016)] [Electronically signed by Lenka IrahetaR.N.PVernon (19:15 04/08/2016)] [Electronically locked/signed by Ana Rubio R.N. (14:50 04/08/2016)]
--- NOTE | 2016-04-08 19:15 | ED MED RECONCILIATION SUMMARY ---
Patient: PRABHJOT AYALA Medication Reconciliation Report [facility] VisitID: [id number] [address] [place] [address] 80y, F Registration Date/Time: 04/08/2016 Weight: 80.2 kg Height/Length: 60 in. BMI: 34.5 ALLERGIES: Ambien, Amiodarone, Bactrim, Ceftin, Cozaar, Levofloxacin, Lexapro, LIsinopril, Nitrous oxide-- couldn't breath The patient's Home Medications are listed below: THE FOLLOWING MEDICATIONS NEED TO BE RECONCILED: Diltiazem HCl Oral 180 mg, daily Estraderm Transdermal 0.05, patch weekly HydrALAZINE HCl Oral (10 mg) 1 tablet, TID Omeprazole Oral 40 mg, 2x a day Synthroid Oral 50 mcg, daily Valtrex Oral (1 gm) Warfarin Sodium Oral 3 mg, MWF, 2.5 T TH SS Wellbutrin Oral 150 mg, daily Xanax Oral 0.5 mg, at bedtime The source(s) of the original Home Medication information: patient The following Medications were given to the patient in the Emergency Department: Gentamicin [IM] IM 80 mg, administered: 04/08/2016 2:42:00 PM The following Medications were prescribed to the patient: None.
--- NOTE | 2016-04-08 19:15 | ED MAR SUMMARY ---
..... Medication Administration Record [facility] [address] [place] [address] Patient: PRABHJOT AYALA Visit ID: [id number] 80y, F Weight: 80.2 kg Height/Length: 60 in BMI: 34.5 ALLERGIES: Ambien, Amiodarone, Bactrim, Ceftin, Cozaar, Levofloxacin, Lexapro, LIsinopril, Nitrous oxide-- couldn't breath Given 14:42 04/08/2016 Ana Rubio RKelsey Medication Administered: GENTAMICIN [IM], Dose: 80 mg IM. Medication Ordered: Gentamicin IM 80mg (NOW).
--- NOTE | 2016-04-08 19:15 | ED DISCHARGE INSTRUCTIONS ---
Patient: PRABHJOT AYALA General Instructions [facility] VisitID: [id number] [place] [address] 80y, F Registration Date/Time: 04/08/2016 Acute urinary tract infection with cystitis. No pyelonephritis or hematuria. Not associated with indwelling catheter or obstruction. INSTRUCTIONS Drink plenty of fluids. (to return tomorrow for more antibiotics). Warnings: GENERAL WARNINGS: Return or contact your physician immediately if your condition worsens or changes unexpectedly, if not improving as expected, or if other problems arise. Specifically return if problem worsens. Follow-up: Follow up with your doctor tomorrow even if well. Summary of care provided to patient. Understanding of the discharge instructions verbalized by patient. ADDITIONAL INFORMATION Bladder Infection,Female (Adult) A bladder infection ("cystitis" or "UTI") usually causes a constant urge to urinate and a burning when passing urine. Urine may be cloudy, smelly or dark. There may be pain in the lower abdomen. A bladder infection occurs when bacteria from the vaginal area enter the bladder opening (urethra). This can occur from sexual intercourse, wearing tight clothing, dehydration and other factors. Home Care: Drink lots of fluids (at least 6-8 glasses a day, unless you must restrict fluids for other medical reasons). This will force the medicine into your urinary system and flush the bacteria out of your body. Avoid sexual intercourse until your symptoms are gone. Avoid caffeine, alcohol and spicy foods. These can irritate the bladder. A bladder infection is treated with antibiotics. You may also be given Pyridium (generic = phenazopyridine) to reduce the burning sensation. This medicine will cause your urine to become a bright orange color. The orange urine may stain clothing. You may wear a pad or panty-liner to protect clothing. Preventing Future Infections: Always wipe from front to back after a bowel movement. Keep the genital area clean and dry. Drink plenty of fluids each day to avoid dehydration. Both sexual partners should wash before intercourse. Urinate right after intercourse to flush out the bladder. Wear cotton underwear and cotton-lined panty hose; avoid tight-fitting pants. If you are on control pills and are having frequent bladder infections, discuss with your doctor. Follow Up: Return to this facility or see your doctor if ALL symptoms are not gone after three days of treatment. Get Prompt Medical Attention if any of the following occur: Fever of 100.4F (38C) or higher, or as directed by your healthcare provider No improvement by the third day of treatment Increasing back or abdominal pain Repeated vomiting; unable to keep medicine down Weakness, dizziness or fainting Vaginal discharge Pain, redness or swelling in the labia (outer vaginal area) You have been given the following additional information: Bladder Infection, Female (Adult) (Electronically signed by Lenka Iraheta A.R.N.P. 04/08/2016 19:15)
--- NOTE | 2016-04-08 19:15 | ED MAR SUMMARY ---
..... Medication Administration Record [facility] [address] [place] [address] Patient: PRABHJOT AYALA Visit ID: [id number] 80y, F Weight: 80.2 kg Height/Length: 60 in BMI: 34.5 ALLERGIES: Ambien, Amiodarone, Bactrim, Ceftin, Cozaar, Levofloxacin, Lexapro, LIsinopril, Nitrous oxide-- couldn't breath Given 14:42 04/08/2016 Ana Rubio RKelsey Medication Administered: GENTAMICIN [IM], Dose: 80 mg IM. Medication Ordered: Gentamicin IM 80mg (NOW).
--- NOTE | 2016-04-08 19:15 | ED MED RECONCILIATION SUMMARY ---
Patient: PRABHJOT AYALA Medication Reconciliation Report [facility] VisitID: [id number] [address] [place] [address] 80y, F Registration Date/Time: 04/08/2016 Weight: 80.2 kg Height/Length: 60 in. BMI: 34.5 ALLERGIES: Ambien, Amiodarone, Bactrim, Ceftin, Cozaar, Levofloxacin, Lexapro, LIsinopril, Nitrous oxide-- couldn't breath The patient's Home Medications are listed below: THE FOLLOWING MEDICATIONS NEED TO BE RECONCILED: Diltiazem HCl Oral 180 mg, daily Estraderm Transdermal 0.05, patch weekly HydrALAZINE HCl Oral (10 mg) 1 tablet, TID Omeprazole Oral 40 mg, 2x a day Synthroid Oral 50 mcg, daily Valtrex Oral (1 gm) Warfarin Sodium Oral 3 mg, MWF, 2.5 T TH SS Wellbutrin Oral 150 mg, daily Xanax Oral 0.5 mg, at bedtime The source(s) of the original Home Medication information: patient The following Medications were given to the patient in the Emergency Department: Gentamicin [IM] IM 80 mg, administered: 04/08/2016 2:42:00 PM The following Medications were prescribed to the patient: None.
== END 2016-04-08 14:55 | disposition home or self-care (01) ==
LOC: ED SRH 11:25
DX: N30.90 Cystitis, unspecified without hematuria (principal); I10 Essential (primary) hypertension; Z79.899 Other long term (current) drug therapy; Z88.1 Allergy status to other antibiotic agents; Z88.8 Allergy status to other drugs, medicaments and biological substances; Z79.01 Long term (current) use of anticoagulants
CPT/HCPCS: 90004; 90148; 90469

== ENCOUNTER 2016-04-09 11:45 | Emergency (ER) | payer OTHER, MEDICARE ==
--- NOTE | 2016-04-09 12:27 | ED CLINICAL REPORT ---
Clinical Report - Physicians/Mid Levels [facility] [address] [place] [address] 04/09/2016 11:46 Patient: PRABHJOT AYALA Time Seen: 12:18; initial patient contact, initial documentation, patient care assumed. Arrived- By private vehicle. Historian- patient. RETURN VISIT: recently seen in this ED by me. Seen now for the same problem as before. HISTORY OF PRESENT ILLNESS Chief Complaint: ( another abx shot). This started about 1 weeks ago and is still present but is improving. No current or associated symptoms. (pt is being treated for a complicated uti, pt is here for another abx shot, to cover her til her Monurol rx can get filled tomorrow, says she feels much better, and feels more energy and activity today, no more urine s/s). Similar symptoms previously: Frequently, as bad. Recent medical care: The patient was seen recently at this facility in the emergency department. ( yesterday). REVIEW OF SYSTEMS No fever, difficulty breathing, chest pain, abdominal pain or difficulty with urination. All systems otherwise negative, except as recorded above. PAST HISTORY See nurses notes. PROBLEMS: Dehydration. UTI - Urinary Tract Infection. Hypertension. Dyspnea. Weakness. Pneumonia. Pulmonary fibrosis. Congestive Heart Failure. --12:15 Betty Brooks R.N. ADDITIONAL SURGERIES: Ablation. Cholecystectomy. Hysterectomy. Pacer. --12:16 Betty Brooks R.N. SOCIAL HISTORY Never smoker. No alcohol use or drug use. No recent travel. Is a local resident. FAMILY HISTORY Negative. ADDITIONAL NOTES The nursing notes have been reviewed with agreement regarding the chief complaint, HPI, ROS, PMH and patient medications and allergies. PHYSICAL EXAM Vital Signs: 04/09/2016 12:10 BP: 141/70. HR: 83. RR: 18. O2 saturation: 97%. Temp: 98.5 F. Pain level now: 0/10. Have been reviewed as normal and appear to be correct. Appearance: Alert. No acute distress. Eyes: Pupils equal, round and reactive to light. Eyes normal inspection. Respiratory: No respiratory distress. Skin: Skin warm and dry. Normal skin color. No rash. Normal skin turgor. Neuro: Oriented X 3. No motor deficit. No sensory deficit. PROGRESS AND PROCEDURES Patient counseled in person regarding the patient's stable condition and diagnosis. 12:26. Differential Diagnosis: Other possible considerations: uti, pyelo, urosepsis. Above considerations are based on history and physical exam. Differential diagnosis was discussed with patient. Disposition: Discharged home in good and improved condition (12:26). Condition: good and stable. CLINICAL IMPRESSION Acute urinary tract infection with cystitis. No pyelonephritis or hematuria. Not associated with indwelling catheter or obstruction. INSTRUCTIONS (make sure to get Monurol picked up tomorrow as scheduled and discussed). Warnings: GENERAL WARNINGS: Return or contact your physician immediately if your condition worsens or changes unexpectedly, if not improving as expected, or if other problems arise. Specifically return if problem worsens. Follow-up: Follow up with your doctor tomorrow even if well. Summary of care provided to patient. Understanding of the discharge instructions verbalized by patient. (Electronically signed by Lenka Iraheta A.R.N.P. 04/09/2016 15:04)
--- NOTE | 2016-04-09 12:27 | ED NURSING NOTES ---
Clinical Report - Nurses [facility] [address] [place] [address] 04/09/2016 11:46 Patient: PRABHJOT AYALA TRIAGE Triage time 1210. Acuity: LEVEL 4. --12:17 Betty Brooks R.N. 12:10 04/09/16. BP: 141/70. HR: 83. RR: 18. O2 saturation: 97%. Temp: 98.5 F. Pain level now: 010. --12:17 Betty Brooks R.N. Triage time 1210. Chief Complaint: (pt has hx of UTI- in for f/u antibiotic injection). --15:17 Betty Brooks R.N. Weight: 80.2 kg stated. Height/Length: 60 inches Per Patient. BMI: 34.5. --12:15 Betty Brooks R.N. Medications Diltiazem HCl Oral 180 mg, daily. Estraderm Transdermal 0.05, patch weekly. HydrALAZINE HCl Oral (Tablet 10 mg) 1 tablet, TID. Omeprazole Oral 40 mg, 2x a day. Synthroid Oral 50 mcg, daily. Valtrex Oral (Tablet 1 gm). Warfarin Sodium Oral 3 mg, MWF (2.5 T TH SS). Wellbutrin Oral 150 mg, daily. Xanax Oral 0.5 mg, at bedtime. --12:15 Betty Brooks R.N. Allergies Ambien. (passed out) Amiodarone. (toxicity of lungs) Bactrim. Ceftin. Cozaar. Levofloxacin. Lexapro. (sores in mouth) LIsinopril. Nitrous oxide-- couldn't breath. --12:15 Betty Brooks R.N. History Arrived by private vehicle. Historian: patient. Unaccompanied. Primary physician (fetty). ( Pt was seen here yesterday for UTI with cystitis, given IM Gentamycin, and told to return today for another dose). SOCIAL HX: Never smoker. No alcohol use or drug use. --12:17 Betty Brooks R.N. PROBLEMS: Dehydration. UTI - Urinary Tract Infection. Hypertension. Dyspnea. Weakness. Pneumonia. Pulmonary fibrosis. Congestive Heart Failure. --12:15 Betty Brooks R.N. ADDITIONAL SURGERIES: Ablation. Cholecystectomy. Hysterectomy. Pacer. --12:16 Betty Brooks R.N. Interventions ID band on patient. To treatment room. --12:17 Betty Brooks R.N. PHYSICAL ASSESSMENT 12:10. Ambulatory to room. GENERAL / NEURO / PSYCH: Alert. Oriented X 4. Appears in no acute distress. RESPIRATORY: Respirations not labored. CVS: Capillary refill less than 2 seconds. GI / : Abdomen soft. SKIN: Skin is warm and dry. --12:18 Betty Brooks R.N. NURSING PROGRESS NOTES 12:10. Head of bed elevated. Reassurance given. Patient identifiers checked. Call light placed in reach. Side rails up. Bed placed in lowest position. Patient ready for evaluation- chart flagged and notification provided. --12:17 Betty Brooks R.N. 12:28 04/09/2016 Gentamicin IM. Given in the left ventral gluteus. Allergies verified and confirmed 5 rights. --12:48 Betty Brooks R.N. DISPOSITION / DISCHARGE 12:48. Condition at departure: unchanged and stable. No learning barriers present. Discharge instructions provided and reviewed with the patient. Treatments reviewed (follow thru with medications, return if difficulty). Patient verbalized understanding. Written instructions provided in Greenlandic. The patient was discharged home and unaccompanied at time of discharge. She left the Emergency Department ambulatory and via private vehicle. Patient driving. --15:15 Betty Brooks R.N. 12:48 04/09/16. BP: deferred. HR: deferred. RR: deferred. O2 saturation: deferred. Temp: deferred. Pain level now: 0/10. --15:15 Betty Brooks R.N. Locked/Released at 04/09/2016 15:17 by Betty Brooks R.N.
--- NOTE | 2016-04-09 12:27 | ED NURSING NOTES ---
Clinical Report - Nurses [facility] [address] [place] [address] 04/09/2016 11:46 Patient: PRABHJOT AYALA TRIAGE Triage time 1210. Acuity: LEVEL 4. --12:17 Betty Brooks R.N. 12:10 04/09/16. BP: 141/70. HR: 83. RR: 18. O2 saturation: 97%. Temp: 98.5 F. Pain level now: 010. --12:17 Betty Brooks R.N. Triage time 1210. Chief Complaint: (pt has hx of UTI- in for f/u antibiotic injection). --15:17 Betty Brooks R.N. Weight: 80.2 kg stated. Height/Length: 60 inches Per Patient. BMI: 34.5. --12:15 Betty Brooks R.N. Medications Diltiazem HCl Oral 180 mg, daily. Estraderm Transdermal 0.05, patch weekly. HydrALAZINE HCl Oral (Tablet 10 mg) 1 tablet, TID. Omeprazole Oral 40 mg, 2x a day. Synthroid Oral 50 mcg, daily. Valtrex Oral (Tablet 1 gm). Warfarin Sodium Oral 3 mg, MWF (2.5 T TH SS). Wellbutrin Oral 150 mg, daily. Xanax Oral 0.5 mg, at bedtime. --12:15 Betty Brooks R.N. Allergies Ambien. (passed out) Amiodarone. (toxicity of lungs) Bactrim. Ceftin. Cozaar. Levofloxacin. Lexapro. (sores in mouth) LIsinopril. Nitrous oxide-- couldn't breath. --12:15 Betty Brooks R.N. History Arrived by private vehicle. Historian: patient. Unaccompanied. Primary physician (fetty). ( Pt was seen here yesterday for UTI with cystitis, given IM Gentamycin, and told to return today for another dose). SOCIAL HX: Never smoker. No alcohol use or drug use. --12:17 Betty Brooks R.N. PROBLEMS: Dehydration. UTI - Urinary Tract Infection. Hypertension. Dyspnea. Weakness. Pneumonia. Pulmonary fibrosis. Congestive Heart Failure. --12:15 Betty Brooks R.N. ADDITIONAL SURGERIES: Ablation. Cholecystectomy. Hysterectomy. Pacer. --12:16 Betty Brooks R.N. Interventions ID band on patient. To treatment room. --12:17 Betty Brooks R.N. PHYSICAL ASSESSMENT 12:10. Ambulatory to room. GENERAL / NEURO / PSYCH: Alert. Oriented X 4. Appears in no acute distress. RESPIRATORY: Respirations not labored. CVS: Capillary refill less than 2 seconds. GI / : Abdomen soft. SKIN: Skin is warm and dry. --12:18 Betty Brooks R.N. NURSING PROGRESS NOTES 12:10. Head of bed elevated. Reassurance given. Patient identifiers checked. Call light placed in reach. Side rails up. Bed placed in lowest position. Patient ready for evaluation- chart flagged and notification provided. --12:17 Betty Brooks R.N. 12:28 04/09/2016 Gentamicin IM. Given in the left ventral gluteus. Allergies verified and confirmed 5 rights. --12:48 Betty Brooks R.N. DISPOSITION / DISCHARGE 12:48. Condition at departure: unchanged and stable. No learning barriers present. Discharge instructions provided and reviewed with the patient. Treatments reviewed (follow thru with medications, return if difficulty). Patient verbalized understanding. Written instructions provided in Armenian. The patient was discharged home and unaccompanied at time of discharge. She left the Emergency Department ambulatory and via private vehicle. Patient driving. --15:15 Betty Brooks R.N. 12:48 04/09/16. BP: deferred. HR: deferred. RR: deferred. O2 saturation: deferred. Temp: deferred. Pain level now: 0/10. --15:15 eBtty Brooks R.N. Locked/Released at 04/09/2016 15:17 by Betty Brooks R.N.
--- NOTE | 2016-04-09 12:27 | ED ORDER SUMMARY ---
..... Patient: PRABHJOT AYALA OrderSheet [facility] VisitID: [id number] [address] [place] [address] 80y, F Registration Date/Time: 04/09/2016 ORDER SHEET Weight: 80.2 kg (stated) Allergies: Ambien, Amiodarone, Bactrim, Ceftin, Cozaar, Levofloxacin, Lexapro, LIsinopril, Nitrous oxide-- couldn't breath GENERAL ORDERS: MEDICATION ORDERS: Gentamicin IM 80mg (NOW) (12:24 04/09/2016 HBivens A.R.N.P.) (Ack 12:31 DDean R.N.) (12:48 DDean R.N.) IV FLUIDS: ORDER SHEET NOTES: [Electronically signed by Lenka IrahetaR.N.PVernon (15:04 04/09/2016)] [Electronically signed by Betty Brooks R.N. (15:17 04/09/2016)] [Electronically locked/signed by Betty Brooks R.N. (15:17 04/09/2016)]
--- NOTE | 2016-04-09 12:27 | ED ORDER SUMMARY ---
..... Patient: PRABHJOT AYALA OrderSheet [facility] VisitID: [id number] [address] [place] [address] 80y, F Registration Date/Time: 04/09/2016 ORDER SHEET Weight: 80.2 kg (stated) Allergies: Ambien, Amiodarone, Bactrim, Ceftin, Cozaar, Levofloxacin, Lexapro, LIsinopril, Nitrous oxide-- couldn't breath GENERAL ORDERS: MEDICATION ORDERS: Gentamicin IM 80mg (NOW) (12:24 04/09/2016 HBivens A.R.N.P.) (Ack 12:31 DDean R.N.) (12:48 DDean R.N.) IV FLUIDS: ORDER SHEET NOTES: [Electronically signed by Lenka IrahetaR.N.PVernon (15:04 04/09/2016)] [Electronically signed by Betty Brooks R.N. (15:17 04/09/2016)] [Electronically locked/signed by Betty Brooks R.N. (15:17 04/09/2016)]
--- NOTE | 2016-04-09 15:18 | ED DISCHARGE INSTRUCTIONS ---
Patient: PRABHJOT AYALA General Instructions [facility] VisitID: [id number] [place] [address] 80y, F Registration Date/Time: 04/09/2016 Acute urinary tract infection with cystitis. No pyelonephritis or hematuria. Not associated with indwelling catheter or obstruction. INSTRUCTIONS (make sure to get Monurol picked up tomorrow as scheduled and discussed). Warnings: GENERAL WARNINGS: Return or contact your physician immediately if your condition worsens or changes unexpectedly, if not improving as expected, or if other problems arise. Specifically return if problem worsens. Follow-up: Follow up with your doctor tomorrow even if well. Summary of care provided to patient. Understanding of the discharge instructions verbalized by patient. ADDITIONAL INFORMATION Bladder Infection,Female (Adult) A bladder infection ("cystitis" or "UTI") usually causes a constant urge to urinate and a burning when passing urine. Urine may be cloudy, smelly or dark. There may be pain in the lower abdomen. A bladder infection occurs when bacteria from the vaginal area enter the bladder opening (urethra). This can occur from sexual intercourse, wearing tight clothing, dehydration and other factors. Home Care: Drink lots of fluids (at least 6-8 glasses a day, unless you must restrict fluids for other medical reasons). This will force the medicine into your urinary system and flush the bacteria out of your body. Avoid sexual intercourse until your symptoms are gone. Avoid caffeine, alcohol and spicy foods. These can irritate the bladder. A bladder infection is treated with antibiotics. You may also be given Pyridium (generic = phenazopyridine) to reduce the burning sensation. This medicine will cause your urine to become a bright orange color. The orange urine may stain clothing. You may wear a pad or panty-liner to protect clothing. Preventing Future Infections: Always wipe from front to back after a bowel movement. Keep the genital area clean and dry. Drink plenty of fluids each day to avoid dehydration. Both sexual partners should wash before intercourse. Urinate right after intercourse to flush out the bladder. Wear cotton underwear and cotton-lined panty hose; avoid tight-fitting pants. If you are on control pills and are having frequent bladder infections, discuss with your doctor. Follow Up: Return to this facility or see your doctor if ALL symptoms are not gone after three days of treatment. Get Prompt Medical Attention if any of the following occur: Fever of 100.4F (38C) or higher, or as directed by your healthcare provider No improvement by the third day of treatment Increasing back or abdominal pain Repeated vomiting; unable to keep medicine down Weakness, dizziness or fainting Vaginal discharge Pain, redness or swelling in the labia (outer vaginal area) You have been given the following additional information: Bladder Infection, Female (Adult) (Electronically signed by Lenka Iraheta A.R.N.P. 04/09/2016 15:04)
--- NOTE | 2016-04-09 15:18 | ED MED RECONCILIATION SUMMARY ---
Patient: PRABHJOT AYALA Medication Reconciliation Report [facility] VisitID: [id number] [address] [address] 80y, F Registration Date/Time: 04/09/2016 Weight: 80.2 kg Height/Length: 60 in. BMI: 34.5 ALLERGIES: Ambien, Amiodarone, Bactrim, Ceftin, Cozaar, Levofloxacin, Lexapro, LIsinopril, Nitrous oxide-- couldn't breath The patient's Home Medications are listed below: THE FOLLOWING MEDICATIONS NEED TO BE RECONCILED: Diltiazem HCl Oral 180 mg, daily Estraderm Transdermal 0.05, patch weekly HydrALAZINE HCl Oral (10 mg) 1 tablet, TID Omeprazole Oral 40 mg, 2x a day Synthroid Oral 50 mcg, daily Valtrex Oral (1 gm) Warfarin Sodium Oral 3 mg, MWF, 2.5 T TH SS Wellbutrin Oral 150 mg, daily Xanax Oral 0.5 mg, at bedtime The source(s) of the original Home Medication information: Not obtained. The following Medications were given to the patient in the Emergency Department: Gentamicin [IM] IM, administered: 04/09/2016 12:28:00 PM The following Medications were prescribed to the patient: None.
--- NOTE | 2016-04-09 15:18 | ED MAR SUMMARY ---
..... Medication Administration Record [facility] [address] [place] [address] Patient: PRABHJOT AYALA Visit ID: [id number] 80y, F Weight: 80.2 kg Height/Length: 60 in BMI: 34.5 ALLERGIES: Ambien, Amiodarone, Bactrim, Ceftin, Cozaar, Levofloxacin, Lexapro, LIsinopril, Nitrous oxide-- couldn't breath Given 12:28 04/09/2016 ToddBetty RVernonN. Medication Administered: GENTAMICIN [IM], Dose: IM. Medication Ordered: Gentamicin IM 80mg (NOW).
--- NOTE | 2016-04-09 15:18 | ED MED RECONCILIATION SUMMARY ---
Patient: PRABHJOT AYALA Medication Reconciliation Report [facility] VisitID: [id number] [address] [place] [address] 80y, F Registration Date/Time: 04/09/2016 Weight: 80.2 kg Height/Length: 60 in. BMI: 34.5 ALLERGIES: Ambien, Amiodarone, Bactrim, Ceftin, Cozaar, Levofloxacin, Lexapro, LIsinopril, Nitrous oxide-- couldn't breath The patient's Home Medications are listed below: THE FOLLOWING MEDICATIONS NEED TO BE RECONCILED: Diltiazem HCl Oral 180 mg, daily Estraderm Transdermal 0.05, patch weekly HydrALAZINE HCl Oral (10 mg) 1 tablet, TID Omeprazole Oral 40 mg, 2x a day Synthroid Oral 50 mcg, daily Valtrex Oral (1 gm) Warfarin Sodium Oral 3 mg, MWF, 2.5 T TH SS Wellbutrin Oral 150 mg, daily Xanax Oral 0.5 mg, at bedtime The source(s) of the original Home Medication information: Not obtained. The following Medications were given to the patient in the Emergency Department: Gentamicin [IM] IM, administered: 04/09/2016 12:28:00 PM The following Medications were prescribed to the patient: None.
--- NOTE | 2016-04-09 15:18 | ED MAR SUMMARY ---
..... Medication Administration Record [facility] [address] [place] [address] Patient: PRABHJOT AYALA Visit ID: [id number] 80y, F Weight: 80.2 kg Height/Length: 60 in BMI: 34.5 ALLERGIES: Ambien, Amiodarone, Bactrim, Ceftin, Cozaar, Levofloxacin, Lexapro, LIsinopril, Nitrous oxide-- couldn't breath Given 12:28 04/09/2016 ToddBetty RVernonN. Medication Administered: GENTAMICIN [IM], Dose: IM. Medication Ordered: Gentamicin IM 80mg (NOW).
== END 2016-04-09 12:48 | disposition home or self-care (01) ==
LOC: ED SRH 11:45
DX: N30.00 Acute cystitis without hematuria (principal); I10 Essential (primary) hypertension; I50.40 Unspecified combined systolic (congestive) and diastolic (congestive) heart failure; Z79.01 Long term (current) use of anticoagulants; Z79.899 Other long term (current) drug therapy; Z88.1 Allergy status to other antibiotic agents; Z88.8 Allergy status to other drugs, medicaments and biological substances; Z91.09 Other allergy status, other than to drugs and biological substances

== ENCOUNTER 2016-04-10 11:09 | Emergency (ER) | payer OTHER, MEDICARE ==
--- NOTE | 2016-04-10 12:13 | ED NURSING NOTES ---
Clinical Report - Nurses [facility] [address] [place] [address] 04/10/2016 11:08 Patient: PRABHJOT AYALA TRIAGE Triage time 1115. Acuity: LEVEL 4. Chief Complaint: (Pt here for additional shot of Gentamycin 80mg IM. Pt is being treated for resistive UTI,and po speciallty med is not yet in at pharmacy. Pt instructed to return to ED if needed for injection today. Pt has appt with urologist tomorrow). --11:20 Betty Brooks R.N. 11:15 04/10/16. BP: 142/63. HR: 85. RR: 18. O2 saturation: 98% on room air. Temp: 98.9 F. Pain level now: 0/10. --11:20 Betty Brooks R.N. Weight: 80.2 kg stated. Height/Length: 60 inches Per Patient. BMI: 34.5. --12:27 Betty Brooks R.N. Medications Diltiazem HCl Oral 180 mg, daily. Estraderm Transdermal 0.05, patch weekly. HydrALAZINE HCl Oral (Tablet 10 mg) 1 tablet, TID. Omeprazole Oral 40 mg, 2x a day. Synthroid Oral 50 mcg, daily. --11:19 Betty Brooks R.N. Valtrex Oral (Tablet 1 gm). Warfarin Sodium Oral 3 mg, MWF (2.5 T TH SS). Wellbutrin Oral 150 mg, daily. Xanax Oral 0.5 mg, at bedtime. --11:19 Betty Brooks R.N. Allergies Ambien. (passed out) Amiodarone. (toxicity of lungs) Bactrim. Ceftin. Cozaar. Levofloxacin. Lexapro. (sores in mouth) LIsinopril. Nitrous oxide-- couldn't breath. --11:19 Betty Brooks R.N. History Arrived by private vehicle. Historian: patient. Accompanied by family. Primary physician (jung,). --11:20 Betty Brooks R.N. PROBLEMS: Dehydration. UTI - Urinary Tract Infection. Hypertension. Dyspnea. Weakness. Pneumonia. Pulmonary fibrosis. Congestive Heart Failure. --11:19 Betty Brooks R.N. ADDITIONAL SURGERIES: Ablation. Cholecystectomy. Hysterectomy. Pacer. --11:19 Betty Brooks R.N. Interventions ID band on patient. To treatment room. --11:20 Betty Brooks R.N. PHYSICAL ASSESSMENT 11:15. Ambulatory to room. Patient gowned. GENERAL / NEURO / PSYCH: Alert. Oriented X 4. Appears in no acute distress. Patient's nutrition appears within normal limits. EXTREMITIES: Extremity pulses are within normal limits. Capillary refill is less than 2 seconds in the extremities. SKIN: Skin is warm and dry. --11:21 Betty Brooks R.N. NURSING PROGRESS NOTES 11:15. Reassurance given. Patient identifiers checked. Call light placed in reach. Bed placed in lowest position. Patient ready for evaluation- chart flagged. --11:21 Betty Brooks R.N. 11:41 04/10/2016 Gentamicin IM 80 mg given. Given in the right ventral gluteus. --11:41 Betty Brooks R.N. 12:00 No rash or itching from antibiotic injection . watching tv. family at bedside. --12:29 Betty Brooks R.N. DISPOSITION / DISCHARGE 12:10. Condition at departure: unchanged and stable. No learning barriers present. Discharge instructions provided and reviewed with the family. Reviewed medication(s) (cont home meds, follow up with urologist tomorrow as scheduled). Family verbalized understanding. Written instructions provided in Greek. The patient was discharged home and accompanied by family. She left the Emergency Department ambulatory and via private vehicle. Family member driving. --12:27 Betty Brooks R.N. 12:10 04/10/16. BP: deferred. HR: deferred. RR: deferred. O2 saturation: deferred. Temp: deferred. Pain level now: 0/10. --12:27 Betty Brooks R.N. Locked/Released at 04/10/2016 12:30 by Betty Brooks R.N.
--- NOTE | 2016-04-10 12:13 | ED ORDER SUMMARY ---
..... Patient: PRABHJOT AYALA OrderSheet [facility] VisitID: [id number] [address] [place] [address] 80y, F Registration Date/Time: 04/10/2016 ORDER SHEET Weight: 80.2 kg (stated) Allergies: Ambien, Amiodarone, Bactrim, Ceftin, Cozaar, Levofloxacin, Lexapro, LIsinopril, Nitrous oxide-- couldn't breath GENERAL ORDERS: MEDICATION ORDERS: Gentamicin IM 80mg (NOW) (11:41 04/10/2016 DDeadanya R.N. verbal order read back to Darshan BERNAL) (11:41 DDeadanya R.N.) IV FLUIDS: ORDER SHEET NOTES: [Electronically signed by Betty Brooks R.N. (12:29 04/10/2016)] [Electronically signed by Ric Morales MD (20:05 04/10/2016)] [Electronically locked/signed by Betty Brooks R.N. (12:29 04/10/2016)]
--- NOTE | 2016-04-10 12:13 | ED CLINICAL REPORT ---
Clinical Report - Physicians/Mid Levels [facility] [address] [place] [address] 04/10/2016 11:08 Patient: PRABHJOT AYALA Time Seen: 11:42. Arrived- By private vehicle. Historian- patient. HISTORY OF PRESENT ILLNESS Treated in emergency department yesterday. Chief Complaint: multidrug-resistant urinary tract infection. Previous emergency department treatment: IM antibiotics given. The patient has no complaints since the procedure was performed. (patient has a urinary tract infection with a resistant strain of bacteria. Additionally she has multiple allergies. She has been coming in for intramuscular gentamicin injections. Her last injection is to be given today and she follows up with her urologist tomorrow..). REVIEW OF SYSTEMS No chills, fever, sweats, calf pain or chest pain. No cough, difficulty breathing, pedal edema, palpitations or abdominal pain. No constipation, diarrhea, nausea, vomiting or urinary problems. All systems otherwise negative, except as recorded above. SOCIAL HISTORY Never smoker. No alcohol use or drug use. FAMILY HISTORY No significant family medical history. ADDITIONAL NOTES The nursing notes have been reviewed. PHYSICAL EXAM Vital Signs: 04/10/2016 11:15 BP: 142/63. HR: 85. RR: 18. O2 saturation: 98%. Temp: 98.9 F. Pain level now: 0/10. Have been reviewed. Appearance: Alert. No acute distress. Head: No swelling of head. Eyes: Pupils equal, round and reactive to light. ENT: Pharynx normal. Neck: Painless ROM. CVS: Heart sounds normal. Respiratory: Breath sounds normal. Abdomen: Soft and nontender. No organomegaly. Back: No tenderness. ROM normal. Extremities: Normal inspection. No lower extremity edema. PROGRESS AND PROCEDURES Course of Care: Patient is stable. Patient/family counseled. Old medical records reviewed. Disposition: Discharged. Condition: stable. CLINICAL IMPRESSION Urinary tract infection. INSTRUCTIONS Warnings: GENERAL WARNINGS: Return or contact your physician immediately if your condition worsens or changes unexpectedly, if not improving as expected, or if other problems arise. Your Current Medications: CONTINUE TAKING THE FOLLOWING MEDICATIONS: Diltiazem HCl Oral : 180 mg daily. Estraderm Transdermal : 0.05 patch weekly. HydrALAZINE HCl Oral : Tablet 10 mg, 1 tablet TID. Omeprazole Oral : 40 mg 2x a day. Synthroid Oral : 50 mcg daily. Valtrex Oral : Tablet 1 gm. Warfarin Sodium Oral : 3 mg MWF, 2.5 T TH SS. Wellbutrin Oral : 150 mg daily. Xanax Oral : 0.5 mg at bedtime. Follow-up: Follow up with your doctor as scheduled. Follow up with a urologist Dr. Wilson tomorrow as scheduled. Understanding of the discharge instructions verbalized by patient and family. (Electronically signed by Ric Morales MD 04/10/2016 20:05)
--- NOTE | 2016-04-10 12:13 | ED ORDER SUMMARY ---
..... Patient: PRABHJOT AYALA OrderSheet [facility] VisitID: [id number] [address] [place] [address] 80y, F Registration Date/Time: 04/10/2016 ORDER SHEET Weight: 80.2 kg (stated) Allergies: Ambien, Amiodarone, Bactrim, Ceftin, Cozaar, Levofloxacin, Lexapro, LIsinopril, Nitrous oxide-- couldn't breath GENERAL ORDERS: MEDICATION ORDERS: Gentamicin IM 80mg (NOW) (11:41 04/10/2016 DDeadanya R.N. verbal order read back to Darshan BERNAL) (11:41 DDeadanya R.N.) IV FLUIDS: ORDER SHEET NOTES: [Electronically signed by Betty Brooks R.N. (12:29 04/10/2016)] [Electronically signed by Ric Morales MD (20:05 04/10/2016)] [Electronically locked/signed by Betty Brooks R.N. (12:29 04/10/2016)]
--- NOTE | 2016-04-10 12:13 | ED CLINICAL REPORT ---
Clinical Report - Physicians/Mid Levels [facility] [address] [place] [address] 04/10/2016 11:08 Patient: PRABHJOT AYALA Time Seen: 11:42. Arrived- By private vehicle. Historian- patient. HISTORY OF PRESENT ILLNESS Treated in emergency department yesterday. Chief Complaint: multidrug-resistant urinary tract infection. Previous emergency department treatment: IM antibiotics given. The patient has no complaints since the procedure was performed. (patient has a urinary tract infection with a resistant strain of bacteria. Additionally she has multiple allergies. She has been coming in for intramuscular gentamicin injections. Her last injection is to be given today and she follows up with her urologist tomorrow..). REVIEW OF SYSTEMS No chills, fever, sweats, calf pain or chest pain. No cough, difficulty breathing, pedal edema, palpitations or abdominal pain. No constipation, diarrhea, nausea, vomiting or urinary problems. All systems otherwise negative, except as recorded above. SOCIAL HISTORY Never smoker. No alcohol use or drug use. FAMILY HISTORY No significant family medical history. ADDITIONAL NOTES The nursing notes have been reviewed. PHYSICAL EXAM Vital Signs: 04/10/2016 11:15 BP: 142/63. HR: 85. RR: 18. O2 saturation: 98%. Temp: 98.9 F. Pain level now: 0/10. Have been reviewed. Appearance: Alert. No acute distress. Head: No swelling of head. Eyes: Pupils equal, round and reactive to light. ENT: Pharynx normal. Neck: Painless ROM. CVS: Heart sounds normal. Respiratory: Breath sounds normal. Abdomen: Soft and nontender. No organomegaly. Back: No tenderness. ROM normal. Extremities: Normal inspection. No lower extremity edema. PROGRESS AND PROCEDURES Course of Care: Patient is stable. Patient/family counseled. Old medical records reviewed. Disposition: Discharged. Condition: stable. CLINICAL IMPRESSION Urinary tract infection. INSTRUCTIONS Warnings: GENERAL WARNINGS: Return or contact your physician immediately if your condition worsens or changes unexpectedly, if not improving as expected, or if other problems arise. Your Current Medications: CONTINUE TAKING THE FOLLOWING MEDICATIONS: Diltiazem HCl Oral : 180 mg daily. Estraderm Transdermal : 0.05 patch weekly. HydrALAZINE HCl Oral : Tablet 10 mg, 1 tablet TID. Omeprazole Oral : 40 mg 2x a day. Synthroid Oral : 50 mcg daily. Valtrex Oral : Tablet 1 gm. Warfarin Sodium Oral : 3 mg MWF, 2.5 T TH SS. Wellbutrin Oral : 150 mg daily. Xanax Oral : 0.5 mg at bedtime. Follow-up: Follow up with your doctor as scheduled. Follow up with a urologist Dr. Wilson tomorrow as scheduled. Understanding of the discharge instructions verbalized by patient and family. (Electronically signed by Ric Morales MD 04/10/2016 20:05)
--- NOTE | 2016-04-10 20:05 | ED DISCHARGE INSTRUCTIONS ---
Patient: PRABHJOT AYALA General Instructions [facility] VisitID: [id number] [place] [address] 80y, F Registration Date/Time: 04/10/2016 Urinary tract infection. INSTRUCTIONS Warnings: GENERAL WARNINGS: Return or contact your physician immediately if your condition worsens or changes unexpectedly, if not improving as expected, or if other problems arise. Your Current Medications: CONTINUE TAKING THE FOLLOWING MEDICATIONS: Diltiazem HCl Oral : 180 mg daily. Estraderm Transdermal : 0.05 patch weekly. HydrALAZINE HCl Oral : Tablet 10 mg, 1 tablet TID. Omeprazole Oral : 40 mg 2x a day. Synthroid Oral : 50 mcg daily. Valtrex Oral : Tablet 1 gm. Warfarin Sodium Oral : 3 mg MWF, 2.5 T TH SS. Wellbutrin Oral : 150 mg daily. Xanax Oral : 0.5 mg at bedtime. Follow-up: Follow up with your doctor as scheduled. Follow up with a urologist Dr. Wilson tomorrow as scheduled. Understanding of the discharge instructions verbalized by patient and family. ADDITIONAL INFORMATION Bladder Infection,Female (Adult) A bladder infection ("cystitis" or "UTI") usually causes a constant urge to urinate and a burning when passing urine. Urine may be cloudy, smelly or dark. There may be pain in the lower abdomen. A bladder infection occurs when bacteria from the vaginal area enter the bladder opening (urethra). This can occur from sexual intercourse, wearing tight clothing, dehydration and other factors. Home Care: Drink lots of fluids (at least 6-8 glasses a day, unless you must restrict fluids for other medical reasons). This will force the medicine into your urinary system and flush the bacteria out of your body. Avoid sexual intercourse until your symptoms are gone. Avoid caffeine, alcohol and spicy foods. These can irritate the bladder. A bladder infection is treated with antibiotics. You may also be given Pyridium (generic = phenazopyridine) to reduce the burning sensation. This medicine will cause your urine to become a bright orange color. The orange urine may stain clothing. You may wear a pad or panty-liner to protect clothing. Preventing Future Infections: Always wipe from front to back after a bowel movement. Keep the genital area clean and dry. Drink plenty of fluids each day to avoid dehydration. Both sexual partners should wash before intercourse. Urinate right after intercourse to flush out the bladder. Wear cotton underwear and cotton-lined panty hose; avoid tight-fitting pants. If you are on control pills and are having frequent bladder infections, discuss with your doctor. Follow Up: Return to this facility or see your doctor if ALL symptoms are not gone after three days of treatment. Get Prompt Medical Attention if any of the following occur: Fever of 100.4F (38C) or higher, or as directed by your healthcare provider No improvement by the third day of treatment Increasing back or abdominal pain Repeated vomiting; unable to keep medicine down Weakness, dizziness or fainting Vaginal discharge Pain, redness or swelling in the labia (outer vaginal area) You have been given the following additional information: Bladder Infection, Female (Adult) (Electronically signed by Ric Morales MD 04/10/2016 20:05)
--- NOTE | 2016-04-10 20:05 | ED MED RECONCILIATION SUMMARY ---
Patient: PRABHJOT AYALA Medication Reconciliation Report [facility] VisitID: [id number] [address] [place] [address] 80y, F Registration Date/Time: 04/10/2016 Weight: 80.2 kg Height/Length: 60 in. BMI: 34.5 ALLERGIES: Ambien, Amiodarone, Bactrim, Ceftin, Cozaar, Levofloxacin, Lexapro, LIsinopril, Nitrous oxide-- couldn't breath The patient's Home Medications are listed below: CONTINUE TAKING THE FOLLOWING MEDICATIONS: Diltiazem HCl Oral 180 mg, daily Estraderm Transdermal 0.05, patch weekly HydrALAZINE HCl Oral (10 mg) 1 tablet, TID Omeprazole Oral 40 mg, 2x a day Synthroid Oral 50 mcg, daily Valtrex Oral (1 gm) Warfarin Sodium Oral 3 mg, MWF, 2.5 T TH SS Wellbutrin Oral 150 mg, daily Xanax Oral 0.5 mg, at bedtime The source(s) of the original Home Medication information: Not obtained. The following Medications were given to the patient in the Emergency Department: Gentamicin [IM] IM 80 mg, administered: 04/10/2016 11:41:00 AM The following Medications were prescribed to the patient: None.
--- NOTE | 2016-04-10 20:05 | ED MAR SUMMARY ---
..... Medication Administration Record [facility] [address] [place] [address] Patient: PRABHJOT AYALA Visit ID: [id number] 80y, F Weight: 80.2 kg Height/Length: 60 in BMI: 34.5 ALLERGIES: Ambien, Amiodarone, Bactrim, Ceftin, Cozaar, Levofloxacin, Lexapro, LIsinopril, Nitrous oxide-- couldn't breath Given 11:41 04/10/2016 ToddBetty RVernonN. Medication Administered: GENTAMICIN [IM], Dose: 80 mg IM. Medication Ordered: Gentamicin IM 80mg (NOW).
--- NOTE | 2016-04-10 20:05 | ED MAR SUMMARY ---
..... Medication Administration Record [facility] [address] [place] [address] Patient: PRABHJOT YAALA Visit ID: [id number] 80y, F Weight: 80.2 kg Height/Length: 60 in BMI: 34.5 ALLERGIES: Ambien, Amiodarone, Bactrim, Ceftin, Cozaar, Levofloxacin, Lexapro, LIsinopril, Nitrous oxide-- couldn't breath Given 11:41 04/10/2016 ToddBetty RVernonN. Medication Administered: GENTAMICIN [IM], Dose: 80 mg IM. Medication Ordered: Gentamicin IM 80mg (NOW).
--- NOTE | 2016-04-10 20:05 | ED MED RECONCILIATION SUMMARY ---
Patient: PRABHJOT AYALA Medication Reconciliation Report [facility] VisitID: [id number] [address] [place] [address] 80y, F Registration Date/Time: 04/10/2016 Weight: 80.2 kg Height/Length: 60 in. BMI: 34.5 ALLERGIES: Ambien, Amiodarone, Bactrim, Ceftin, Cozaar, Levofloxacin, Lexapro, LIsinopril, Nitrous oxide-- couldn't breath The patient's Home Medications are listed below: CONTINUE TAKING THE FOLLOWING MEDICATIONS: Diltiazem HCl Oral 180 mg, daily Estraderm Transdermal 0.05, patch weekly HydrALAZINE HCl Oral (10 mg) 1 tablet, TID Omeprazole Oral 40 mg, 2x a day Synthroid Oral 50 mcg, daily Valtrex Oral (1 gm) Warfarin Sodium Oral 3 mg, MWF, 2.5 T TH SS Wellbutrin Oral 150 mg, daily Xanax Oral 0.5 mg, at bedtime The source(s) of the original Home Medication information: Not obtained. The following Medications were given to the patient in the Emergency Department: Gentamicin [IM] IM 80 mg, administered: 04/10/2016 11:41:00 AM The following Medications were prescribed to the patient: None.
== END 2016-04-10 16:57 | disposition home or self-care (01) ==
LOC: ED SRH 11:09
DX: N39.0 Urinary tract infection, site not specified (principal); I10 Essential (primary) hypertension; Z88.1 Allergy status to other antibiotic agents; Z88.8 Allergy status to other drugs, medicaments and biological substances; Z79.899 Other long term (current) drug therapy

== ENCOUNTER 2016-04-14 08:42 | Outpatient (CLI) | payer OTHER, MEDICARE ==
--- NOTE | 2016-04-14 10:45 | DIAGNOSTIC IMAGING REPORT ---
PROCEDURE: US KIDNEY/RENAL COMPLETE INDICATION: PELVIC PAIN,RECURRENT UTI TECHNIQUE: Transabdominal scans of the kidneys with calculation of resistive indices. Prevoid and postvoid bladder volumes were obtained. COMPARISON: None. FINDINGS: RIGHT: Kidney measures 10.1 x 4.1 x 4.8 cm. Cortex measures 1.6 cm. No calculi or hydronephrosis. Resistive indices measure 0.71 or less, normal. LEFT: Kidney measures 10 x 4.9 x 3.7 cm. Cortex measures 1.4 cm. No calculi or hydronephrosis. Normal resistive indices measure 0.67 or less. BLADDER: Bilateral ureteral jets not visualized. Prevoid bladder volume 290 ml, postvoid volume 81 ml. IMPRESSION: 1. 81 ml postvoid residual bladder volume 2. Otherwise negative renal ultrasound
--- NOTE | 2016-04-14 10:50 | DIAGNOSTIC IMAGING REPORT ---
PROCEDURE: US COMPLETE PELVIC W/TRANSVAG INDICATION: PELVIC PAIN,RECURRENT UTI, initial encounter. TECHNIQUE: Transabdominal and endovaginal almeida scale and color Doppler sonographic images of the female pelvis were obtained. COMPARISON: None. FINDINGS: TRANSABDOMINAL SCANS: Hysterectomy. Bladder is unremarkable. 5.2 x 4.2 x 3.8 cm left adnexal cyst seen only transabdominally. TRANSVAGINAL SCANS: Normal vaginal cuff. Ovaries not visualized. No free fluid. IMPRESSION: 1. Hysterectomy with normal vaginal cuff 2. 5.2 cm left adnexal cyst
== END 2016-04-14 23:00 ==
LOC: US SRH 08:42
DX: R33.9 Retention of urine, unspecified (principal); R10.2 Pelvic and perineal pain; N39.0 Urinary tract infection, site not specified

== ENCOUNTER 2016-06-06 16:54 | Emergency (ER) | payer OTHER, MEDICARE ==
--- NOTE | 2016-06-06 18:03 | ED NURSING NOTES ---
Clinical Report - Nurses [facility] [address] [place] [address] 06/06/2016 16:54 Patient: PRABHJOT AYALA TRIAGE Triage time 17:11. Acuity: LEVEL 4. Chief Complaint: REDNESS and PAIN TO LEFT EYE. Alert. No acute distress. KARI COMA SCORE: [place] Coma Scale: 15- eyes open spontaneously (4); best verbal response- oriented x 4 (5); best motor response- obeys commands (6). --17:18 Daphney Walker R.N. 17:10 06/06/16. BP: 158/83. HR: 70. RR: 16. O2 saturation: 98% on room air. Temp: 97.9 F (oral). Pain level now: 0/10. --17:18 Daphney Walker R.N. Weight: 77.1 kg. Height/Length: 60 inches. BMI: 33.2. --17:17 Daphney Walker R.N. Medications Diltiazem HCl Oral 180 mg, daily. Estraderm Transdermal 0.05, patch weekly. HydrALAZINE HCl Oral (Tablet 10 mg) 1 tablet, TID. Omeprazole Oral 40 mg, 2x a day. Synthroid Oral 50 mcg, daily. Warfarin Sodium Oral 3 mg, MWF (2.5 T TH SS). Wellbutrin Oral 150 mg, daily. --17:13 Daphney Walker R.N. Xanax Oral 0.5 mg, at bedtime. --17:13 Daphney Walker R.N. Monurol Oral. --17:14 Daphney Walker R.N. Medication/allergy information source: the patient. --17:18 Daphney Walker R.N. Allergies Ambien. (passed out) Amiodarone. (toxicity of lungs) Bactrim. Ceftin. Cozaar. Levofloxacin. Lexapro. (sores in mouth) LIsinopril. Nitrous oxide-- couldn't breath. --17:13 Daphney Walker R.N. History Arrived by private vehicle. Historian: patient. Accompanied by family. Primary physician (Grant). Onset. (about 30 minutes ago). She did not sustain an injury. SOCIAL HX: No drug use. FALL RISK ASSESSMENT: Fall risk assessment completed. No fall risk identified. FUNCTIONAL ASSESSMENT: Functional assessment: no impairments noted. LEARNING NEEDS ASSESSMENT: The learning needs assessment revealed no barriers. --17:18 Daphney Walker R.N. SOCIAL HX: Never smoker. No alcohol use. --17:19 Daphney Walker R.N. PROBLEMS: Viral infection in eye. Bbacterial infection in eye. Dehydration. UTI - Urinary Tract Infection. Hypertension. Dyspnea. Weakness. Pneumonia. Pulmonary fibrosis. Congestive Heart Failure. --17:15 Daphney Walker R.N. ADDITIONAL SURGERIES: Ablation. Cataract Surgery. Cholecystectomy. Hysterectomy. Pacer. --17:15 Daphney Walker R.N. Assessment GENERAL / NEURO / PSYCH: Alert. Oriented X 4. Appears in no acute distress. Patient appears calm and cooperative. RESPIRATORY: Respirations not labored. SKIN: Skin is warm and dry. --17:18 Daphney Walker R.N. Interventions ID and allergy band on patient. To treatment room. --17:18 Daphney Walker R.N. PHYSICAL ASSESSMENT 17:21 06/06/16. Ambulatory to room. GENERAL / NEURO / PSYCH: Alert. Appears in no acute distress. HEENT: Conjunctival findings present: redness of the left conjunctiva. RESPIRATORY: Respirations not labored. SKIN: Skin is warm and dry. --17:21 Daphney Walker R.N. NURSING PROGRESS NOTES 17:21 06/06/16. Head of bed elevated. Call light placed in reach. Side rails up x 1. Bed placed in lowest position. Brakes of bed on. --17:21 Daphney Walker R.N. 17:32 06/06/16. VISUAL ACUITY: Visual acuity performed: left eye 20/70; right eye 20/30. --17:32 Daphney Walker R.N. 17:42 06/06/2016 Proparacaine Eye Drops Opthalmic solution. Given in the left eye. (per provider). --17:47 Daphney Walker R.N. 17:42 06/06/2016 FLUORESCEIN Opth soln 1 Strip given. (per provider). --17:47 Daphney Walker R.N. DISPOSITION / DISCHARGE Condition at departure: improved. No learning barriers present. Discharge instructions provided and reviewed with the patient and family. Reviewed medication(s). Prescription(s) given to the patient (rx faxed to [facility] pharmacy ok'd by charge weigher Deanna). Patient and family verbalized understanding. Written instructions provided in [place]. The patient was discharged by the nurse practitioner. She was discharged home and accompanied by family. She left the Emergency Department ambulatory and via private vehicle. Family member driving. ( pt dc only by this RN, pt ambulatory to lobby with steady gait,). --18:34 Ilda Reyes R.N. 18:28 06/06/16. BP: 150/70. HR: 71. RR: 17 (regular). O2 saturation: 99% on room air. Temp: 98.1 F. Pain level now: 0/10. --18:34 Ilda Reyes R.N. Locked/Released at 06/10/2016 19:33 by Ilda Reyes R.N.
--- NOTE | 2016-06-06 18:03 | ED NURSING NOTES ---
Clinical Report - Nurses [facility] [address] [place] [address] 06/06/2016 16:54 Patient: PRABHJOT AYALA TRIAGE Triage time 17:11. Acuity: LEVEL 4. Chief Complaint: REDNESS and PAIN TO LEFT EYE. Alert. No acute distress. KARI COMA SCORE: [place] Coma Scale: 15- eyes open spontaneously (4); best verbal response- oriented x 4 (5); best motor response- obeys commands (6). --17:18 Daphney Walker R.N. 17:10 06/06/16. BP: 158/83. HR: 70. RR: 16. O2 saturation: 98% on room air. Temp: 97.9 F (oral). Pain level now: 0/10. --17:18 Daphney Walker R.N. Weight: 77.1 kg. Height/Length: 60 inches. BMI: 33.2. --17:17 Daphney Walker R.N. Medications Diltiazem HCl Oral 180 mg, daily. Estraderm Transdermal 0.05, patch weekly. HydrALAZINE HCl Oral (Tablet 10 mg) 1 tablet, TID. Omeprazole Oral 40 mg, 2x a day. Synthroid Oral 50 mcg, daily. Warfarin Sodium Oral 3 mg, MWF (2.5 T TH SS). Wellbutrin Oral 150 mg, daily. --17:13 Daphney Walker R.N. Xanax Oral 0.5 mg, at bedtime. --17:13 Daphney Walker R.N. Monurol Oral. --17:14 Daphney Walker R.N. Medication/allergy information source: the patient. --17:18 Daphney Walker R.N. Allergies Ambien. (passed out) Amiodarone. (toxicity of lungs) Bactrim. Ceftin. Cozaar. Levofloxacin. Lexapro. (sores in mouth) LIsinopril. Nitrous oxide-- couldn't breath. --17:13 Daphney Walker R.N. History Arrived by private vehicle. Historian: patient. Accompanied by family. Primary physician (Grant). Onset. (about 30 minutes ago). She did not sustain an injury. SOCIAL HX: No drug use. FALL RISK ASSESSMENT: Fall risk assessment completed. No fall risk identified. FUNCTIONAL ASSESSMENT: Functional assessment: no impairments noted. LEARNING NEEDS ASSESSMENT: The learning needs assessment revealed no barriers. --17:18 Daphney Walker R.N. SOCIAL HX: Never smoker. No alcohol use. --17:19 Daphney Walker R.N. PROBLEMS: Viral infection in eye. Bbacterial infection in eye. Dehydration. UTI - Urinary Tract Infection. Hypertension. Dyspnea. Weakness. Pneumonia. Pulmonary fibrosis. Congestive Heart Failure. --17:15 Daphney Walker R.N. ADDITIONAL SURGERIES: Ablation. Cataract Surgery. Cholecystectomy. Hysterectomy. Pacer. --17:15 Daphney Walker R.N. Assessment GENERAL / NEURO / PSYCH: Alert. Oriented X 4. Appears in no acute distress. Patient appears calm and cooperative. RESPIRATORY: Respirations not labored. SKIN: Skin is warm and dry. --17:18 Daphney Walker R.N. Interventions ID and allergy band on patient. To treatment room. --17:18 Daphney Walker R.N. PHYSICAL ASSESSMENT 17:21 06/06/16. Ambulatory to room. GENERAL / NEURO / PSYCH: Alert. Appears in no acute distress. HEENT: Conjunctival findings present: redness of the left conjunctiva. RESPIRATORY: Respirations not labored. SKIN: Skin is warm and dry. --17:21 Daphney Walker R.N. NURSING PROGRESS NOTES 17:21 06/06/16. Head of bed elevated. Call light placed in reach. Side rails up x 1. Bed placed in lowest position. Brakes of bed on. --17:21 Daphney Walker R.N. 17:32 06/06/16. VISUAL ACUITY: Visual acuity performed: left eye 20/70; right eye 20/30. --17:32 Daphney Walker R.N. 17:42 06/06/2016 Proparacaine Eye Drops Opthalmic solution. Given in the left eye. (per provider). --17:47 Daphney Walker R.N. 17:42 06/06/2016 FLUORESCEIN Opth soln 1 Strip given. (per provider). --17:47 Daphney Walker R.N. DISPOSITION / DISCHARGE Condition at departure: improved. No learning barriers present. Discharge instructions provided and reviewed with the patient and family. Reviewed medication(s). Prescription(s) given to the patient (rx faxed to [facility] pharmacy ok'd by set up and charger Deanna). Patient and family verbalized understanding. Written instructions provided in [place]. The patient was discharged by the nurse practitioner. She was discharged home and accompanied by family. She left the Emergency Department ambulatory and via private vehicle. Family member driving. ( pt dc only by this RN, pt ambulatory to lobby with steady gait,). --18:34 Ilda Reyes R.N. 18:28 06/06/16. BP: 150/70. HR: 71. RR: 17 (regular). O2 saturation: 99% on room air. Temp: 98.1 F. Pain level now: 0/10. --18:34 Ilda Reyes R.N. Locked/Released at 06/10/2016 19:33 by Ilda Reyes R.N.
--- NOTE | 2016-06-06 18:03 | ED CLINICAL REPORT ---
Clinical Report - Physicians/Mid Levels [facility] [address] [place] [address] 06/06/2016 16:54 Patient: PRABHJOT AYALA Time Seen: 17:12; upon arrival, initial patient contact, initial documentation, patient care assumed. Arrived- By private vehicle. Historian- patient. HISTORY OF PRESENT ILLNESS Chief Complaint: EYE REDNESS. This started just prior to arrival, involves the left eye, is characterized as moderate in severity and has been constant and is still present. The patient did not sustain an injury. Eye pain, discomfort and redness. No eye itching, eyelid swelling, photophobia, blurred vision or double vision. No decreased vision or loss of vision. ( sitting watching tv and eye started to feel painful). REVIEW OF SYSTEMS All systems otherwise negative, except as recorded above. PAST HISTORY See nurses notes. PROBLEMS: Viral infection in eye. Bbacterial infection in eye. Dehydration. UTI - Urinary Tract Infection. Hypertension. Dyspnea. Weakness. Pneumonia. Pulmonary fibrosis. Congestive Heart Failure. --17:15 Daphney Walker RVernonN. ADDITIONAL SURGERIES: Ablation. Cataract Surgery. Cholecystectomy. Hysterectomy. Pacer. --17:15 Daphney Walker, RZachery. No history of prior eye injury. She does not wear contact lenses. SOCIAL HISTORY Never smoker. No alcohol use or drug use. FAMILY HISTORY No significant family medical history. ADDITIONAL NOTES The nursing notes have been reviewed with agreement regarding the chief complaint, HPI, ROS, PMH and patient medications and allergies. PHYSICAL EXAM Vital Signs: 06/06/2016 17:10 BP: 158/83. HR: 70. RR: 16. O2 saturation: 98%. Temp: 97.9 F. Pain level now: 0/10. Have been reviewed as normal and appear to be correct. Appearance: Alert. Oriented X3. No acute distress. HEENT: Nose normal. Head appears normal to external inspection. Rt Eye: Right eye exam normal. Eyes: Visual acuity noted- see nurse's notes. Left eyelid everted for examination. Left cornea examined with fluorescein stain. Eyelids appear normal to inspection. Conjunctivae and sclerae do not appear normal to inspection. Corneas do not appear normal to inspection. Pupils equal, round and reactive to light. Accommodation normal. Funduscopic exam normal. Visual chavez normal. EOMs intact. Periorbital areas appear normal to inspection. Anterior chambers clear. Anterior chambers of normal depth. Lt Eye: Left eye exam normal. Medium sized subconjunctival hemorrhage. Single small circular shaped corneal abrasion located centrally and laterally (3:00 position, small pin point dye uptake). Fluorescein dye uptake on the cornea. No corneal foreign body. Neck: Neck supple. Normal inspection. Respiratory: No respiratory distress. Skin: No rash. Extremities: Extremities negative. Neuro: Oriented X 3. Mood/affect normal. No motor deficit. No sensory deficit. PROGRESS AND PROCEDURES Patient and family counseled in person regarding the patient's stable condition and diagnosis. 18:03. Differential Diagnosis: Other possible considerations: hyphema, subconjunctival hemorrhage, fb, glaucoma, abrasion. Above considerations are based on history and physical exam. Differential diagnosis was discussed with patient and patient's family. Disposition: Discharged home in good and improved condition (18:03). Condition: good and stable. CLINICAL IMPRESSION Left subconjunctival hemorrhage INSTRUCTIONS Warnings: GENERAL WARNINGS: Return or contact your physician immediately if your condition worsens or changes unexpectedly, if not improving as expected, or if other problems arise. Specifically return if problem worsens. Prescription Medications: Gentamicin ophthalmic ointment 0.3% : Apply 1/2 inch to inner aspect of the lower lid on the affected eye every 8 hours for 1 week. Dispense three and one half (3.5) gm. No refills. Follow-up: Follow up with an pile driver operator tomorrow even if well. Call for an appointment. Summary of care provided to patient. Understanding of the discharge instructions verbalized by patient. (Electronically signed by Lenka Iraheta A.R.N.P. 06/06/2016 19:38)
--- NOTE | 2016-06-06 18:03 | ED CLINICAL REPORT ---
Clinical Report - Physicians/Mid Levels [facility] [address] [place] [address] 06/06/2016 16:54 Patient: PRABHJOT AYALA Time Seen: 17:12; upon arrival, initial patient contact, initial documentation, patient care assumed. Arrived- By private vehicle. Historian- patient. HISTORY OF PRESENT ILLNESS Chief Complaint: EYE REDNESS. This started just prior to arrival, involves the left eye, is characterized as moderate in severity and has been constant and is still present. The patient did not sustain an injury. Eye pain, discomfort and redness. No eye itching, eyelid swelling, photophobia, blurred vision or double vision. No decreased vision or loss of vision. ( sitting watching tv and eye started to feel painful). REVIEW OF SYSTEMS All systems otherwise negative, except as recorded above. PAST HISTORY See nurses notes. PROBLEMS: Viral infection in eye. Bbacterial infection in eye. Dehydration. UTI - Urinary Tract Infection. Hypertension. Dyspnea. Weakness. Pneumonia. Pulmonary fibrosis. Congestive Heart Failure. --17:15 Daphney Walker RVernonN. ADDITIONAL SURGERIES: Ablation. Cataract Surgery. Cholecystectomy. Hysterectomy. Pacer. --17:15 Daphney Walker, RZachery. No history of prior eye injury. She does not wear contact lenses. SOCIAL HISTORY Never smoker. No alcohol use or drug use. FAMILY HISTORY No significant family medical history. ADDITIONAL NOTES The nursing notes have been reviewed with agreement regarding the chief complaint, HPI, ROS, PMH and patient medications and allergies. PHYSICAL EXAM Vital Signs: 06/06/2016 17:10 BP: 158/83. HR: 70. RR: 16. O2 saturation: 98%. Temp: 97.9 F. Pain level now: 0/10. Have been reviewed as normal and appear to be correct. Appearance: Alert. Oriented X3. No acute distress. HEENT: Nose normal. Head appears normal to external inspection. Rt Eye: Right eye exam normal. Eyes: Visual acuity noted- see nurse's notes. Left eyelid everted for examination. Left cornea examined with fluorescein stain. Eyelids appear normal to inspection. Conjunctivae and sclerae do not appear normal to inspection. Corneas do not appear normal to inspection. Pupils equal, round and reactive to light. Accommodation normal. Funduscopic exam normal. Visual chavez normal. EOMs intact. Periorbital areas appear normal to inspection. Anterior chambers clear. Anterior chambers of normal depth. Lt Eye: Left eye exam normal. Medium sized subconjunctival hemorrhage. Single small circular shaped corneal abrasion located centrally and laterally (3:00 position, small pin point dye uptake). Fluorescein dye uptake on the cornea. No corneal foreign body. Neck: Neck supple. Normal inspection. Respiratory: No respiratory distress. Skin: No rash. Extremities: Extremities negative. Neuro: Oriented X 3. Mood/affect normal. No motor deficit. No sensory deficit. PROGRESS AND PROCEDURES Patient and family counseled in person regarding the patient's stable condition and diagnosis. 18:03. Differential Diagnosis: Other possible considerations: hyphema, subconjunctival hemorrhage, fb, glaucoma, abrasion. Above considerations are based on history and physical exam. Differential diagnosis was discussed with patient and patient's family. Disposition: Discharged home in good and improved condition (18:03). Condition: good and stable. CLINICAL IMPRESSION Left subconjunctival hemorrhage INSTRUCTIONS Warnings: GENERAL WARNINGS: Return or contact your physician immediately if your condition worsens or changes unexpectedly, if not improving as expected, or if other problems arise. Specifically return if problem worsens. Prescription Medications: Gentamicin ophthalmic ointment 0.3% : Apply 1/2 inch to inner aspect of the lower lid on the affected eye every 8 hours for 1 week. Dispense three and one half (3.5) gm. No refills. Follow-up: Follow up with an finish production manager tomorrow even if well. Call for an appointment. Summary of care provided to patient. Understanding of the discharge instructions verbalized by patient. (Electronically signed by Lenka Iraheta A.R.N.P. 06/06/2016 19:38)
--- NOTE | 2016-06-06 18:04 | ED ORDER SUMMARY ---
..... Patient: PRABHJOT AYALA OrderSheet [facility] VisitID: [id number] [address] [place] [address] 80y, F Registration Date/Time: 06/06/2016 ORDER SHEET Weight: 77.1 kg Allergies: Ambien, Amiodarone, Bactrim, Ceftin, Cozaar, Levofloxacin, Lexapro, LIsinopril, Nitrous oxide-- couldn't breath GENERAL ORDERS: Eye Tray (17:06/06/2016 HBivens A.R.N.P.) (18:13 Tahmina R.N.) MEDICATION ORDERS: Proparacaine Eye Drops (Solution 0.5 %) 2 drops (place at bedside) (:06/06/2016 HBivens A.R.N.P.) (17:47 Tahmina R.N.) Fluorescein Eye Strips 1 strips (NOW) (:06/06/2016 HBivens A.R.N.P.) (17:47 Tahmina R.N.) IV FLUIDS: ORDER SHEET NOTES: [Electronically signed by Lenka Iraheta.R.N.PVernon (19:38 06/06/2016)] [Electronically signed by Ilda Reyes R.N. (19:33 06/10/2016)] [Electronically locked/signed by Ilda Reyes R.N. (19:33 06/10/2016)]
--- NOTE | 2016-06-06 18:04 | ED ORDER SUMMARY ---
..... Patient: PRABHJOT AYALA OrderSheet [facility] VisitID: [id number] [address] [place] [address] 80y, F Registration Date/Time: 06/06/2016 ORDER SHEET Weight: 77.1 kg Allergies: Ambien, Amiodarone, Bactrim, Ceftin, Cozaar, Levofloxacin, Lexapro, LIsinopril, Nitrous oxide-- couldn't breath GENERAL ORDERS: Eye Tray (17:06/06/2016 HBivens A.R.N.P.) (18:13 Tahmina R.N.) MEDICATION ORDERS: Proparacaine Eye Drops (Solution 0.5 %) 2 drops (place at bedside) (:06/06/2016 HBivens A.R.N.P.) (17:47 Tahmina R.N.) Fluorescein Eye Strips 1 strips (NOW) (:06/06/2016 HBivens A.R.N.P.) (17:47 Tahmina R.N.) IV FLUIDS: ORDER SHEET NOTES: [Electronically signed by Lenka Iraheta.R.N.PVernon (19:38 06/06/2016)] [Electronically signed by Ilda Reyes R.N. (19:33 06/10/2016)] [Electronically locked/signed by Ilda Reyes R.N. (19:33 06/10/2016)]
--- NOTE | 2016-06-10 19:33 | ED MED RECONCILIATION SUMMARY ---
Patient: PRABHJOT AYALA Medication Reconciliation Report Located Within [facility] VisitID: [id number] [address] [place] [address] 80y, F Registration Date/Time: 06/06/2016 Weight: 77.1 kg Height/Length: 60 in. BMI: 33.2 ALLERGIES: Ambien, Amiodarone, Bactrim, Ceftin, Cozaar, Levofloxacin, Lexapro, LIsinopril, Nitrous oxide-- couldn't breath The patient's Home Medications are listed below: THE FOLLOWING MEDICATIONS NEED TO BE RECONCILED: Diltiazem HCl Oral 180 mg, daily Estraderm Transdermal 0.05, patch weekly HydrALAZINE HCl Oral (10 mg) 1 tablet, TID Monurol Oral Omeprazole Oral 40 mg, 2x a day Synthroid Oral 50 mcg, daily Warfarin Sodium Oral 3 mg, MWF, 2.5 T TH SS Wellbutrin Oral 150 mg, daily Xanax Oral 0.5 mg, at bedtime The source(s) of the original Home Medication information: patient The following Medications were given to the patient in the Emergency Department: Proparacaine [Eye Drops] Eye Drops, administered: 06/06/2016 5:42:00 PM FLUORESCEIN [EYE STRIPS] Opth soln 1 Strip, administered: 06/06/2016 5:42:00 PM The following Medications were prescribed to the patient: Gentamicin ophthalmic ointment 0.3% : Apply 1/2 inch to inner aspect of the lower lid on the affected eye every 8 hours for 1 week. Dispense three and one half (3.5) gm. No refills. -- Lenka Iraheta A.R.N.P.
--- NOTE | 2016-06-10 19:33 | ED DISCHARGE INSTRUCTIONS ---
Patient: PRABHJOT AYALA General Instructions [facility] VisitID: [id number] [place] [address] 80y, F Registration Date/Time: 06/06/2016 Left subconjunctival hemorrhage INSTRUCTIONS Warnings: GENERAL WARNINGS: Return or contact your physician immediately if your condition worsens or changes unexpectedly, if not improving as expected, or if other problems arise. Specifically return if problem worsens. Prescription Medications: Gentamicin ophthalmic ointment 0.3% : Apply 1/2 inch to inner aspect of the lower lid on the affected eye every 8 hours for 1 week. Dispense three and one half (3.5) gm. No refills. Follow-up: Follow up with an dinkey mechanic tomorrow even if well. Call for an appointment. Summary of care provided to patient. Understanding of the discharge instructions verbalized by patient. ADDITIONAL INFORMATION Subconjunctival Hemorrhage A subconjunctival hemorrhage is a result of a broken blood vessel in the white portion of the eye. It is usually painless and may be caused by coughing, sneezing or vomiting. An injury to the eye can cause this. It can also be a sign of hypertension (high blood pressure) or a bleeding disorder. Although it can look frightening, the presence of the blood is not serious. The blood will be reabsorbed without treatment within 2-3 weeks. Home Care: You may continue your usual activities. Get Prompt Medical Attention if any of the following occur: Pain in the eye Change in vision The blood does not disappear within three weeks Increasing redness or swelling of the eye Severe headache or dizziness Other signs of bruising or bleeding from other parts of your body You have been given the following additional information: Subconjunctival Hemorrhage (Electronically signed by Lenka Iraheta A.R.N.P. 06/06/2016 19:38)
--- NOTE | 2016-06-10 19:33 | ED MED RECONCILIATION SUMMARY ---
Patient: PRABHJOT AYALA Medication Reconciliation Report [facility] VisitID: [id number] [address] [place] [address] 80y, F Registration Date/Time: 06/06/2016 Weight: 77.1 kg Height/Length: 60 in. BMI: 33.2 ALLERGIES: Ambien, Amiodarone, Bactrim, Ceftin, Cozaar, Levofloxacin, Lexapro, LIsinopril, Nitrous oxide-- couldn't breath The patient's Home Medications are listed below: THE FOLLOWING MEDICATIONS NEED TO BE RECONCILED: Diltiazem HCl Oral 180 mg, daily Estraderm Transdermal 0.05, patch weekly HydrALAZINE HCl Oral (10 mg) 1 tablet, TID Monurol Oral Omeprazole Oral 40 mg, 2x a day Synthroid Oral 50 mcg, daily Warfarin Sodium Oral 3 mg, MWF, 2.5 T TH SS Wellbutrin Oral 150 mg, daily Xanax Oral 0.5 mg, at bedtime The source(s) of the original Home Medication information: patient The following Medications were given to the patient in the Emergency Department: Proparacaine [Eye Drops] Eye Drops, administered: 06/06/2016 5:42:00 PM FLUORESCEIN [EYE STRIPS] Opth soln 1 Strip, administered: 06/06/2016 5:42:00 PM The following Medications were prescribed to the patient: Gentamicin ophthalmic ointment 0.3% : Apply 1/2 inch to inner aspect of the lower lid on the affected eye every 8 hours for 1 week. Dispense three and one half (3.5) gm. No refills. -- Lenka Iraheta A.R.N.P.
--- NOTE | 2016-06-10 19:33 | ED MAR SUMMARY ---
..... Medication Administration Record [facility] [address] [place] [address] Patient: PRABHJOT AYALA Visit ID: [id number] 80y, F Weight: 77.1 kg Height/Length: 60 in BMI: 33.2 ALLERGIES: Ambien, Amiodarone, Bactrim, Ceftin, Cozaar, Levofloxacin, Lexapro, LIsinopril, Nitrous oxide-- couldn't breath Given 17:42 06/06/2016 Daphney Walker RVernonN. Medication Administered: PROPARACAINE [EYE DROPS], Dose: Opthalmic solution Eye Drops. Medication Ordered: Proparacaine Eye Drops (Solution 0.5 %) [address] drops ([address] at bedside). Given 17:42 06/06/2016 Daphney Walker, RVernonN. Medication Administered: FLUORESCEIN [EYE STRIPS], Dose: 1 Strip Opth soln. Medication Ordered: Fluorescein Eye Strips 1 strips (NOW).
--- NOTE | 2016-06-10 19:33 | ED MAR SUMMARY ---
..... Medication Administration Record [facility] [address] [place] [address] Patient: PRABHJOT AYALA Visit ID: [id number] 80y, F Weight: 77.1 kg Height/Length: 60 in BMI: 33.2 ALLERGIES: Ambien, Amiodarone, Bactrim, Ceftin, Cozaar, Levofloxacin, Lexapro, LIsinopril, Nitrous oxide-- couldn't breath Given 17:42 06/06/2016 Daphney Walker RVernonN. Medication Administered: PROPARACAINE [EYE DROPS], Dose: Opthalmic solution Eye Drops. Medication Ordered: Proparacaine Eye Drops (Solution 0.5 %) [address] drops ([address] at bedside). Given 17:42 06/06/2016 Daphney Walker, RVernonN. Medication Administered: FLUORESCEIN [EYE STRIPS], Dose: 1 Strip Opth soln. Medication Ordered: Fluorescein Eye Strips 1 strips (NOW).
--- NOTE | 2016-06-10 19:33 | ED DISCHARGE INSTRUCTIONS ---
Patient: PRABHJOT AYALA General Instructions [facility] VisitID: [id number] [place] [address] 80y, F Registration Date/Time: 06/06/2016 Left subconjunctival hemorrhage INSTRUCTIONS Warnings: GENERAL WARNINGS: Return or contact your physician immediately if your condition worsens or changes unexpectedly, if not improving as expected, or if other problems arise. Specifically return if problem worsens. Prescription Medications: Gentamicin ophthalmic ointment 0.3% : Apply 1/2 inch to inner aspect of the lower lid on the affected eye every 8 hours for 1 week. Dispense three and one half (3.5) gm. No refills. Follow-up: Follow up with an supervising nurse tomorrow even if well. Call for an appointment. Summary of care provided to patient. Understanding of the discharge instructions verbalized by patient. ADDITIONAL INFORMATION Subconjunctival Hemorrhage A subconjunctival hemorrhage is a result of a broken blood vessel in the white portion of the eye. It is usually painless and may be caused by coughing, sneezing or vomiting. An injury to the eye can cause this. It can also be a sign of hypertension (high blood pressure) or a bleeding disorder. Although it can look frightening, the presence of the blood is not serious. The blood will be reabsorbed without treatment within 2-3 weeks. Home Care: You may continue your usual activities. Get Prompt Medical Attention if any of the following occur: Pain in the eye Change in vision The blood does not disappear within three weeks Increasing redness or swelling of the eye Severe headache or dizziness Other signs of bruising or bleeding from other parts of your body You have been given the following additional information: Subconjunctival Hemorrhage (Electronically signed by Lenka Iraheta A.R.N.P. 06/06/2016 19:38)
== END 2016-06-06 18:19 | disposition home or self-care (01) ==
LOC: ED SRH 16:54
DX: H11.32 Conjunctival hemorrhage, left eye (principal); I10 Essential (primary) hypertension; Z79.899 Other long term (current) drug therapy; Z88.1 Allergy status to other antibiotic agents; Z88.8 Allergy status to other drugs, medicaments and biological substances

== ENCOUNTER 2016-08-31 10:15 | Outpatient (CLI) | payer OTHER, MEDICARE ==
--- NOTE | 2016-08-31 10:48 | DIAGNOSTIC IMAGING REPORT ---
PROCEDURE: DEXA BONE DENSITY STUDY CLINICAL INDICATION: Postmenopausal, taking hormone replacement therapy COMPARISON: None. FINDINGS: LUMBAR SPINE: Bone mineral density 1.028 g/cm2, T score -0.2, normal. LEFT HIP: Bone mineral density 0.934 g/cm2, T score -0.1, normal. LEFT FEMORAL NECK: Bone mineral density 0.714 g/cm2, T score -1.2, osteopenia. FRACTURE RISK CALCULATION ( when applicable): 10-year fracture risk of a major osteoporotic fracture 11% and of a hip fracture 2.4% (T score greater or equal to -1.0 to: NORMAL) (T score from -1.1 to -2.4: OSTEOPENIA) (T score ess than or equal to -2.5: OSTEOPOROSIS) IMPRESSION: 1. Mild osteopenia of the left femoral neck mildly elevates the patient's 10-year fracture risk as described.
== END 2016-08-31 23:00 | disposition home or self-care (01) ==
LOC: XR SRH 10:15
DX: M85.88 Other specified disorders of bone density and structure, other site (principal)